=== PATIENT | female | born 1995 | race Caucasian/White ===

== ENCOUNTER 2018-07-29 08:23 | Emergency (ER) | payer OTHER, SELFPAY ==
--- NOTE | 2018-07-29 09:39 | EDPHYS ---
Physician Documentation [facility] Name: Denia Aviles Age: 22 yrs Sex: Female : 1995 Arrival Date: 07/29/2018 Time: 08:25 Bed 13 Private MD: None, None ED Physician Morgan Christensen HPI: 07/29 09:41 This 22 yrs old Female presents to ER via Ambulatory with complaints of Knee snw Pain, Hip Pain. 09:41 The patient or guardian reports pain. sustained from unknown reason, The patient's snw discomfort radiates to the left knee. The complaints affect the left hip and left iliac crest and left gluteus celeste. Onset: The symptoms/episode began/occurred suddenly. Associated signs and symptoms: Loss of consciousness: the patient experienced no loss of consciousness. Severity of symptoms: At their worst the symptoms were moderate. It is unknown whether or not the patient has had similar symptoms in the past. no trauma, no fever, no abdominal pain. 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 - Social history:: Smoking status: Patient uses tobacco products, smokes one-half pack cigarettes per day. - Ebola Screening: : Patient denies exposure to infectious person Patient denies travel to an Ebola-affected area in the 21 days before illness onset. ROS: 09:39 Constitutional: Negative for fever, chills, and weight loss, Eyes: Negative for injury, snw pain, redness, and discharge, ENT: Negative for injury, pain, and discharge, Neck: Negative for injury, pain, and swelling, Cardiovascular: Negative for chest pain, palpitations, and edema, Respiratory: Negative for shortness of breath, cough, wheezing, and pleuritic chest pain, Abdomen/GI: Negative for abdominal pain, nausea, vomiting, diarrhea, and constipation, Back: Negative for injury and pain, : Negative for injury, bleeding, discharge, and swelling, Skin: Negative for injury, rash, and discoloration, Neuro: Negative for headache, weakness, numbness, tingling, and seizure. 09:39 MS/extremity: Positive for pain, of the left iliac crest and left hip. Exam: 09:39 Constitutional: This is a well developed, well nourished patient who is awake, alert, snw and in no acute distress. Head/Face: Normocephalic, atraumatic. Eyes: Pupils equal round and reactive to light, extra-ocular motions intact. Lids and lashes normal. Conjunctiva and sclera are non-icteric and not injected. Cornea within normal limits. Periorbital areas with no swelling, redness, or edema. ENT: Nares patent. No nasal discharge, no septal abnormalities noted. Tympanic membranes are normal and external auditory canals are clear. Oropharynx with no redness, swelling, or masses, exudates, or evidence of obstruction, uvula midline. Mucous membranes moist. Neck: Trachea midline, no thyromegaly or masses palpated, and no cervical lymphadenopathy. Supple, full range of motion without nuchal rigidity, or vertebral point tenderness. No Meningismus. Chest/axilla: Normal chest wall appearance and motion. Nontender with no deformity. No lesions are appreciated. Cardiovascular: Regular rate and rhythm with a normal S1 and S2. No gallops, murmurs, or rubs. Normal PMI, no JVD. No pulse deficits. Respiratory: Lungs have equal breath sounds bilaterally, clear to auscultation and percussion. No rales, rhonchi or wheezes noted. No increased work of breathing, no retractions or nasal flaring. Abdomen/GI: Soft, non-tender, with normal bowel sounds. No distension or tympany. No guarding or rebound. No evidence of tenderness throughout. Skin: Warm, dry with normal turgor. Normal color with no rashes, no lesions, and no evidence of cellulitis. MS/ Extremity: Pulses equal, no cyanosis. Neurovascular intact. Full, normal range of motion. Neuro: Awake and alert, GCS 15, oriented to person, place, time, and situation. Cranial nerves II-XII grossly intact. Motor strength 5/5 in all extremities. Sensory grossly intact. Cerebellar exam normal. Normal gait. Psych: Awake, alert, with orientation to person, place and time. Behavior, mood, and affect are within normal limits. 09:39 Back: pain, that is moderate, ROM is painful, normal spinal alignment noted, CVA tenderness, is absent, muscle spasm, is not present. Vital Signs: 08:42 BP 134 / 78; Pulse 67; Resp 15; Temp 97.0(TE); Pulse Ox 99% on R/A; Weight 68.04 kg; ss Height 5 ft. 4 in. (162.56 cm); Pain 6/10; 09:50 BP 128 / 76; Pulse 71; Resp 16; Pulse Ox 99% on R/A; Pain 5/10; em 08:42 Body Mass Index 25.75 (68.04 kg, 162.56 cm) ss MDM: 08:47 Patient medically screened. snw 09:41 Data reviewed: vital signs, nurses notes. Data interpreted: Pulse oximetry: on room air snw is 99 %. Interpretation: normal. Counseling: I had a detailed discussion with the patient and/or guardian regarding: the historical points, exam findings, and any diagnostic results supporting the discharge/admit diagnosis, lab results, the need for outpatient follow up, to return to the emergency department if symptoms worsen or persist or if there are any questions or concerns that arise at home. 07/29 09:08 Order name: Urine Microscopic Only; Complete Time: 09:50 snw 07/29 09:23 Order name: Urine Dipstick--Ancillary (enter results) 07/29 09:23 Order name: Urine --Ancillary (enter results) 07/29 09:47 Order name: Urine Culture [facility] 07/29 09:08 Order name: Urine Test (obtain specimen); Complete Time: 09:20 snw 07/29 09:08 Order name: Urine Dipstick-Ancillary (obtain specimen); Complete Time: 09:20 snw Administered Medications: 09:50 Drug: Flexeril 10 mg Route: PO; em 10:05 Follow up: Response: No adverse reaction em 09:51 Drug: TORadol 60 mg Route: IM; Site: right deltoid; em 10:05 Follow up: Response: No adverse reaction em Disposition: 13:40 Co-signature as Attending Physician, Morgan Christensen MD. rn Disposition: 07/29/18 09:38 Discharged to Home. Impression: Sciatica, left side. - Condition is Stable. - Discharge Instructions: Sciatica, Back Exercises, [id number], Radicular Pain. - Prescriptions for Diclofenac Sodium 75 mg Oral Tablet Sustained Release - take 1 tablet by ORAL route 2 times per day; 30 tablet. orphenadrine citrate 100 mg Oral Tablet Sustained Release - take 1 tablet by ORAL route 2 times per day As needed; 20 tablet. - Work release form, Medication Reconciliation Form, Thank You Letter, Antibiotic Education, Prescription Opioid Use form. - Follow up: Private Physician; When: 2 - 3 days; Reason: Recheck today's complaints, Continuance of care, Re-evaluation by your physician. Follow up: Emergency Department; When: As needed; Reason: Worsening of condition. Signatures: Dispatcher [employer] EDMS Wendy Whelan, WATCH PARTS GRINDER-C WATCH PARTS GRINDER-Csnw Nikolay Fisher, DIRECTOR WORKFORCE MANAGEMENT DIRECTOR WORKFORCE MANAGEMENT em Morgan Christensen MD MD rn Smirch, Shelby, RN RN ss Corrections: (The following items were deleted from the chart) 10:05 09:38 07/29/2018 09:38 Discharged to Home. Impression: Sciatica, left side. Condition em is Stable. Forms are Medication Reconciliation Form, Thank You Letter, Antibiotic Education, Prescription Opioid Use. Follow up: Private Physician; When: 2 - 3 days; Reason: Recheck today's complaints, Continuance of care, Re-evaluation by your physician. Follow up: Emergency Department; When: As needed; Reason: Worsening of condition. snw
--- NOTE | 2018-07-29 09:39 | ER ---
Nurse's Notes [facility] Name: Denia Aviles Age: 22 yrs Sex: Female : 1995 Arrival Date: 07/29/2018 Time: 08:25 Bed 13 Private MD: None, None Diagnosis: Sciatica, left side Presentation: 07/29 08:41 Presenting complaint: Patient states: L hip pain x 5 days that now radiates to L knee. ss Worse when sitting down. Transition of care: patient was not received from another setting of care. Onset of symptoms was July 24, 2018. Risk Assessment: Do you want to hurt yourself or someone else? Patient reports no desire to harm self or others. Initial Sepsis Screen: Does the patient meet any 2 criteria? No. Patient's initial sepsis screen is negative. Does the patient have a suspected source of infection? No. Patient's initial sepsis screen is negative. Care prior to arrival: None. 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 - Social history:: Smoking status: Patient uses tobacco products, smokes one-half pack cigarettes per day. - Ebola Screening: : Patient denies exposure to infectious person Patient denies travel to an Ebola-affected area in the 21 days before illness onset. Screenin:52 Abuse screen: Denies threats or abuse. Denies injuries from another. Nutritional ss screening: No deficits noted. Tuberculosis screening: Never had TB. Fall Risk None identified. Assessment: 08:52 General: Appears in no apparent distress. comfortable, Behavior is calm, cooperative, ss Denies fever, feeling ill, fatigue, chills. Pain: Complains of pain in L hip Pain currently is 6 out of 10 on a pain scale. Quality of pain is described as aching, tender, Pain began 5 days ago, no known injury Is continuous, Aggravated by sitting, increased activity. Neuro: Level of Consciousness is awake, alert, obeys commands, Oriented to person, place, time, situation, Speech is normal. Cardiovascular: Capillary refill < 3 seconds is brisk in bilateral fingers Patient's skin is warm and dry. Respiratory: Airway is patent Respiratory effort is even, unlabored, Respiratory pattern is regular, symmetrical. GI: No signs and/or symptoms were reported involving the gastrointestinal system. EENT: Nares are clear Oral mucosa is moist. Throat is clear. Derm: Skin is pink, warm \T\ dry. normal. Musculoskeletal: Circulation, motion, and sensation intact. Range of motion: intact in all extremities, Swelling absent. 09:50 Reassessment: Patient appears in no apparent distress at this time. Patient and/or em family updated on plan of care and expected duration. Pain level reassessed. Patient is alert, oriented x 3, equal unlabored respirations, skin warm/dry/pink. Vital Signs: 08:42 BP 134 / 78; Pulse 67; Resp 15; Temp 97.0(TE); Pulse Ox 99% on R/A; Weight 68.04 kg; ss Height 5 ft. 4 in. (162.56 cm); Pain 6/10; 09:50 BP 128 / 76; Pulse 71; Resp 16; Pulse Ox 99% on R/A; Pain 5/10; em 08:42 Body Mass Index 25.75 (68.04 kg, 162.56 cm) ED Course: 08:25 Patient arrived in ED. mr 08:26 None, None is Private Physician. mr 08:28 Wendy Whelan [facility]-C [facility]. snw 08:28 Morgan Christensen MD is Attending Physician. snw 08:42 Triage completed. ss 08:42 Arm band placed on right wrist. ss 08:52 Teena Sullivan, ISMAEL is Primary Nurse. ss 08:52 Patient has correct armband on for positive identification. Bed in low position. Call ss light in reach. 08:52 No provider procedures requiring assistance completed. ss 09:19 Urine collected: clean catch specimen, clear. dh3 10:04 Patient did not have IV access during this emergency room visit. em Administered Medications: 09:50 Drug: Flexeril 10 mg Route: PO; em 10:05 Follow up: Response: No adverse reaction em 09:51 Drug: TORadol 60 mg Route: IM; Site: right deltoid; em 10:05 Follow up: Response: No adverse reaction em Outcome: 09:38 Discharge ordered by MD. will 10:04 Discharged to home ambulatory, with family. em 10:04 Condition: good 10:04 Discharge instructions given to patient, family, Instructed on discharge instructions, follow up and referral plans. no drinking with medication, no driving heavy equipment, medication usage, Demonstrated understanding of instructions, follow-up care, medications, Prescriptions given X 2. 10:05 Patient left the ED. em Signatures: Wendy Whelan, JUNIOR AUTOMATION ENGINEER-C JUNIOR AUTOMATION ENGINEER-Sharriw Nubia Chamorro, Nikolay, BEADER TENDER BEADER TENDER em Teena Sullivan, ISMAEL RN Ashley Solano [facility]
[2018-07-29 09:45] LABS: Urine Bacteria 20-50 /HPF (<20); Urine Culture Reflex Order REFLEXED; Urine RBC <5 /HPF (NONE SEEN)
[2018-07-29] MEDS ORDERED: KETOROLAC 30 MG/ML INJ ONE (09:50)
[2018-07-29] MEDS ORDERED: CYCLOBENZAPRINE 10 MG TAB ONE (09:50)
[2018-07-29 10:09] VITALS: TEMP 97; O2SAT 99
[2018-07-29 10:11] VITALS: BP 128/76
[2018-07-29 21:25] LABS: Urine Blood NEGATIVE (NEG); Urine Glucose NEGATIVE (NEG); Urine Protein NEGATIVE (NEG); Urine Specific Gravity 1.025 (1.005-1.030); Urine pH 5.5 (5.0-7.0)
== END 2018-07-29 10:05 | disposition home or self-care (01) ==
LOC: ER 08:23
DX: M54.32 Sciatica, left side (principal); F17.210 Nicotine dependence, cigarettes, uncomplicated
CPT/HCPCS: 81003; 81015; 81025; 87086; 87088; 96372; 99283

== ENCOUNTER 2018-09-10 23:23 | Emergency (ER) | payer SELFPAY ==
--- NOTE | 2018-09-10 23:50 | EDPHYS ---
Physician Documentation [facility] Name: Denia Aviles Age: 23 yrs Sex: Female : 1995 Arrival Date: 09/10/2018 Time: 23:24 Bed 24 Private MD: ED Physician Justice Husain HPI: 09/10 23:47 This 23 yrs old Female presents to ER via Ambulatory with complaints of Back nh Pain. 23:47 The patient presents with pain that is chronic, with no known mechanism of injury. The nh symptoms are located in the low back. Onset: The symptoms/episode began/occurred 3 day(s) ago. The pain does not radiate. Associated signs and symptoms: Pertinent negatives: abdominal pain, chest pain, constipation, dysuria, fever, headache, hematuria, incontinence, nausea, numbness, tingling, urinary retention, vomiting, weakness. Modifying factors: The patient symptoms are alleviated by nothing, the patient symptoms are aggravated by any movement. Severity of symptoms: At their worst the symptoms were moderate, just prior to arrival, in the emergency department the symptoms are unchanged. The patient has experienced similar episodes in the past, chronically. The patient has been recently seen at the [facility] Emergency Department, last month, for similar complaints. 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 - Social history:: Smoking status: Patient uses tobacco products, smokes one pack cigarettes per day. - Ebola Screening: : No symptoms or risks identified at this time. ROS: 23:47 Constitutional: Negative for fever, chills, and weight loss, Eyes: Negative for injury, nh pain, redness, and discharge, ENT: Negative for injury, pain, and discharge, Neck: Negative for injury, pain, and swelling, Cardiovascular: Negative for chest pain, palpitations, and edema, Respiratory: Negative for shortness of breath, cough, wheezing, and pleuritic chest pain, Abdomen/GI: Negative for abdominal pain, nausea, vomiting, diarrhea, and constipation, : Negative for injury, bleeding, discharge, and swelling, MS/Extremity: Negative for injury and deformity, Skin: Negative for injury, rash, and discoloration, Neuro: Negative for headache, weakness, numbness, tingling, and seizure, Psych: Negative for depression, anxiety, suicide ideation, homicidal ideation, and hallucinations, Allergy/Immunology: Negative for hives, rash, and allergies, Endocrine: Negative for neck swelling, polydipsia, polyuria, polyphagia, and marked weight changes, Hematologic/Lymphatic: Negative for swollen nodes, abnormal bleeding, and unusual bruising. 23:47 Back: Positive for pain with movement, Negative for injury or acute deformity, decreased range of motion, radiated pain, acute changes. Exam: 23:47 Constitutional: This is a well developed, well nourished patient who is awake, alert, nh and in no acute distress. Head/Face: Normocephalic, atraumatic. Eyes: Pupils equal round and reactive to light, extra-ocular motions intact. Lids and lashes normal. Conjunctiva and sclera are non-icteric and not injected. Cornea within normal limits. Periorbital areas with no swelling, redness, or edema. ENT: Nares patent. No nasal discharge, no septal abnormalities noted. Tympanic membranes are normal and external auditory canals are clear. Oropharynx with no redness, swelling, or masses, exudates, or evidence of obstruction, uvula midline. Mucous membranes moist. Neck: Trachea midline, no thyromegaly or masses palpated, and no cervical lymphadenopathy. Supple, full range of motion without nuchal rigidity, or vertebral point tenderness. No Meningismus. Chest/axilla: Normal chest wall appearance and motion. Nontender with no deformity. No lesions are appreciated. Cardiovascular: Regular rate and rhythm with a normal S1 and S2. No gallops, murmurs, or rubs. Normal PMI, no JVD. No pulse deficits. Respiratory: Lungs have equal breath sounds bilaterally, clear to auscultation and percussion. No rales, rhonchi or wheezes noted. No increased work of breathing, no retractions or nasal flaring. Abdomen/GI: Soft, non-tender, with normal bowel sounds. No distension or tympany. No guarding or rebound. No evidence of tenderness throughout. Back: No spinal tenderness. No costovertebral tenderness. Full range of motion. Skin: Warm, dry with normal turgor. Normal color with no rashes, no lesions, and no evidence of cellulitis. MS/ Extremity: Pulses equal, no cyanosis. Neurovascular intact. Full, normal range of motion. Neuro: Awake and alert, GCS 15, oriented to person, place, time, and situation. Cranial nerves II-XII grossly intact. Motor strength 5/5 in all extremities. Sensory grossly intact. Cerebellar exam normal. Normal gait. Psych: Awake, alert, with orientation to person, place and time. Behavior, mood, and affect are within normal limits. Vital Signs: 23:33 BP 130 / 79; Pulse 70; Resp 16; Temp 97.8; Pulse Ox 100% on R/A; Weight 72.57 kg; aa1 Height 5 ft. 4 in. (162.56 cm); Pain 6/10; 23:54 BP 125 / 75; Pulse 72; Resp 18; Pulse Ox 100% on R/A; tl2 23:33 Body Mass Index 27.46 (72.57 kg, 162.56 cm) aa1 MDM: 23:27 Patient medically screened. nh 23:47 Data reviewed: vital signs, nurses notes, I have discussed the patient's nm presentation/case with the attending Emergency Department Physician; and as a result, I will discharge patient. Counseling: I had a detailed discussion with the patient and/or guardian regarding: the historical points, exam findings, and any diagnostic results supporting the discharge/admit diagnosis, the need for outpatient follow up, to return to the emergency department if symptoms worsen or persist or if there are any questions or concerns that arise at home. Administered Medications: No medications were administered Disposition: 09/10/18 23:49 Discharged to Home. Impression: Low back pain. - Condition is Stable. - Discharge Instructions: Back Pain, Adult. - Prescriptions for Medrol (Yoni) 4 mg Oral Tablets, Dose Pack - take 1 tablet by ORAL route as directed - follow package instructions; 1 packet. Cyclobenzaprine 5 mg Oral Tablet - take 1 tablet by ORAL route 3 times per day As needed; 15 tablet. - Medication Reconciliation Form, Thank You Letter, Antibiotic Education, Prescription Opioid Use, Work release form form. - Follow up: Private Physician; When: 2 - 3 days; Reason: Recheck today's complaints. - Problem is new. - Symptoms are unchanged. Addendum: 09/14/2018 21:49 Co-signature as Attending Physician, Justice Husain MD Available for consultation at p s1 all times. . Signatures: Mariaa Dobbs, RN RN aa1 Merissa Grant, NUB CARD TENDER NUB CARD TENDER nh Elizabeth Dyer RN RN tl2 Justice Husain MD MD ps1 Corrections: (The following items were deleted from the chart) 09/10 23:55 23:49 09/10/2018 23:49 Discharged to Home. Impression: Low back pain. Condition is tl2 Stable. Forms are Medication Reconciliation Form, Thank You Letter, Antibiotic Education, Prescription Opioid Use. Follow up: Private Physician; When: 2 - 3 days; Reason: Recheck today's complaints. Problem is new. Symptoms are unchanged. nh
--- NOTE | 2018-09-10 23:50 | ER ---
Nurse's Notes [facility] Name: Denia Aviles Age: 23 yrs Sex: Female : 1995 Arrival Date: 09/10/2018 Time: 23:24 Bed 24 Private MD: Diagnosis: Low back pain Presentation: 09/10 23:31 Presenting complaint: Patient states: back pain that runs up spine since this am. aa1 Denies injury. Gait steady. Transition of care: patient was not received from another setting of care. Onset of symptoms was September 10, 2018. Risk Assessment: Do you want to hurt yourself or someone else? Patient reports no desire to harm self or others. Initial Sepsis Screen: Does the patient meet any 2 criteria? No. Patient's initial sepsis screen is negative. Does the patient have a suspected source of infection? No. Patient's initial sepsis screen is negative. Care prior to arrival: None. 23:31 Method Of Arrival: Ambulatory aa1 23:31 Acuity: FRED 5 aa1 Triage Assessment: 23:33 General: Appears in no apparent distress. comfortable, Behavior is calm, cooperative, aa1 appropriate for age. 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 - Social history:: Smoking status: Patient uses tobacco products, smokes one pack cigarettes per day. - Ebola Screening: : No symptoms or risks identified at this time. Screenin:37 Abuse screen: Denies threats or abuse. Nutritional screening: No deficits noted. tl2 Tuberculosis screening: No symptoms or risk factors identified. Fall Risk None identified. Assessment: 23:36 General: Appears in no apparent distress. uncomfortable, Behavior is calm, cooperative, tl2 appropriate for age. Pain: Complains of pain in thoracic area and lumbar area Pain does not radiate. Neuro: Level of Consciousness is awake, alert, obeys commands, Oriented to person, place, time, situation, Denies dizziness, numbness. Cardiovascular: Denies chest pain. Respiratory: Airway is patent Respiratory effort is even, unlabored, Respiratory pattern is regular, symmetrical. GI: No signs and/or symptoms were reported involving the gastrointestinal system. : No signs and/or symptoms were reported regarding the genitourinary system. Derm: Skin is pink, warm \T\ dry. Musculoskeletal: Circulation, motion, and sensation intact. Range of motion: intact in all extremities. 23:54 Reassessment: Patient appears in no apparent distress at this time. Patient and/or tl2 family updated on plan of care and expected duration. Pain level reassessed. Patient is alert, oriented x 3, equal unlabored respirations, skin warm/dry/pink. Pt verbalized understanding of discharge instructions, need for follow up and prescription usage. Vital Signs: 23:33 BP 130 / 79; Pulse 70; Resp 16; Temp 97.8; Pulse Ox 100% on R/A; Weight 72.57 kg; aa1 Height 5 ft. 4 in. (162.56 cm); Pain 6/10; 23:54 BP 125 / 75; Pulse 72; Resp 18; Pulse Ox 100% on R/A; tl2 23:33 Body Mass Index 27.46 (72.57 kg, 162.56 cm) aa1 ED Course: 23:24 Patient arrived in ED. ds1 23:27 Merissa Grant [facility]NP [facility]. nh 23:27 Justice Husain MD is Attending Physician. nh 23:32 Triage completed. aa1 23:33 Arm band placed on right wrist. aa1 23:34 Elizabeth Dyer RN is Primary Nurse. tl2 23:37 Patient has correct armband on for positive identification. Bed in low position. Call tl2 light in reach. Side rails up X 1. Adult w/ patient. 23:54 No provider procedures requiring assistance completed. Patient did not have IV access tl2 during this emergency room visit. Administered Medications: No medications were administered Outcome: 23:49 Discharge ordered by . nh 23:54 Discharged to home ambulatory, with family. tl2 23:54 Condition: stable 23:54 Discharge instructions given to patient, family, Instructed on discharge instructions, follow up and referral plans. medication usage, Demonstrated understanding of instructions, follow-up care, medications, Prescriptions given X 2. 23:55 Patient left the ED. tl2 Signatures: Mariaa Dobbs RN RN aa1 Merissa Grant FNP SAFETY SECURITY OFFICER [facility], Jania ds1 Dyer, Elizabeth, RN RN tl2
[2018-09-11 00:36] VITALS: TEMP 97.8; O2SAT 100
[2018-09-11 00:37] VITALS: BP 125/75
== END 2018-09-10 23:55 | disposition home or self-care (01) ==
LOC: ER 23:23
DX: M54.5 Low back pain (principal); F17.210 Nicotine dependence, cigarettes, uncomplicated
CPT/HCPCS: 99282

== ENCOUNTER 2018-09-21 12:17 | Emergency (ER) | payer SELFPAY ==
--- NOTE | 2018-09-21 13:28 | RAD REPORT ---
EXAM DESCRIPTION: RAD - Foot Right 3 View - 09/21/2018 1:18 pm CLINICAL HISTORY: PAIN COMPARISON: No comparisons FINDINGS: No bone or joint abnormality of the right foot is identified.
--- NOTE | 2018-09-21 14:19 | ER ---
Nurse's Notes [facility] Name: Denia Aviles Age: 23 yrs Sex: Female : 1995 Arrival Date: 09/21/2018 Time: 12:21 Bed 30 Private MD: None, None Diagnosis: Other sprain of right foot Presentation: 09/21 12:36 Presenting complaint: Patient states: R lateral foot pain that began after rolling foot ss while dancing yesterday. Transition of care: patient was not received from another setting of care. Onset of symptoms was September 20, 2018. Risk Assessment: Do you want to hurt yourself or someone else? Patient reports no desire to harm self or others. Initial Sepsis Screen: Does the patient meet any 2 criteria? No. Patient's initial sepsis screen is negative. Does the patient have a suspected source of infection? No. Patient's initial sepsis screen is negative. Care prior to arrival: None. 12:36 Method Of Arrival: Wheelchair ss 12:36 Acuity: FRED 4 ss Historical: - Allergies: 12:37 No Known Allergies; ss - PMHx: 12:37 None; ss - PSHx: 12:37 Cholecystectomy; ss - Immunization history:: Adult Immunizations up to date. - Social history:: Smoking status: Patient uses tobacco products, smokes one-half pack cigarettes per day. - Ebola Screening: : Patient denies exposure to infectious person Patient denies travel to an Ebola-affected area in the 21 days before illness onset. Screenin:17 Abuse screen: Denies threats or abuse. Denies injuries from another. Nutritional aj1 screening: No deficits noted. Tuberculosis screening: No symptoms or risk factors identified. 14:44 Fall Risk None identified. aj1 Assessment: 13:17 General: Appears in no apparent distress. uncomfortable, Behavior is calm, cooperative, aj1 appropriate for age. Pain: Complains of pain in dorsum of right foot Pain currently is 7 out of 10 on a pain scale. Aggravated by repositioning, weight bearing. Neuro: Level of Consciousness is awake, alert, obeys commands. Cardiovascular: Patient's skin is warm and dry. Respiratory: Airway is patent Respiratory effort is even, unlabored, Respiratory pattern is regular, symmetrical. GI: No signs and/or symptoms were reported involving the gastrointestinal system. : No signs and/or symptoms were reported regarding the genitourinary system. EENT: No signs and/or symptoms were reported regarding the EENT system. Derm: No signs and/or symptoms reported regarding the dermatologic system. Skin is pink, warm \T\ dry. normal. Musculoskeletal: Range of motion: intact in all extremities. 14:43 Reassessment: Patient appears in no apparent distress at this time. No changes from aj1 previously documented assessment. Patient and/or family updated on plan of care and expected duration. Pain level reassessed. Patient is alert, oriented x 3, equal unlabored respirations, skin warm/dry/pink. Vital Signs: 12:35 BP 124 / 82; Pulse 62; Resp 16; Temp 97.8(TE); Pulse Ox 99% on R/A; Weight 68.04 kg; ss Height 5 ft. 4 in. (162.56 cm); Pain 7/10; 12:35 Body Mass Index 25.75 (68.04 kg, 162.56 cm) ED Course: 12:21 Patient arrived in ED. sb2 12:21 None, None is Private Physician. sb2 12:35 Arm band placed on right wrist. ss 12:36 Triage completed. ss 12:38 [facility]C [facility]. kb 12:38 Sanjay Lake MD is Attending Physician. kb 13:16 X-ray completed. Portable x-ray completed in exam room. Patient tolerated procedure mh1 well. 13:17 Cha Fowler, RN is Primary Nurse. aj1 13:17 Patient has correct armband on for positive identification. Bed in low position. Call aj1 light in reach. Side rails up X 1. 13:17 No provider procedures requiring assistance completed. aj1 13:21 Foot Right 3 View XRAY In Process Unspecified. EDMS 14:44 Patient did not have IV access during this emergency room visit. Anthony wrap to right foot.aj1 Administered Medications: No medications were administered Outcome: 14:18 Discharge ordered by . kb 14:44 Discharged to home with crutches. aj1 14:44 Condition: good 14:44 Discharge instructions given to patient, Instructed on discharge instructions, follow up and referral plans. medication usage, urine strainer, Demonstrated understanding of instructions, follow-up care, medications, crutch walking, Prescriptions given X 1. 14:45 Patient left the ED. aj1 Signatures: Dispatcher [employer] EDMS Sadaf Salter, THEATER TECHNICIAN-C THEATER TECHNICIAN-Cha Aldridge RN RN aj1 Delilah Garcia 1 Teena Sullivan RN RN ss Cyn Olmedo sb2
--- NOTE | 2018-09-21 14:20 | EDPHYS ---
Physician Documentation [facility] Name: Denia Aviles Age: 23 yrs Sex: Female : 1995 Arrival Date: 09/21/2018 Time: 12:21 Bed 30 Private MD: None, None ED Physician Sanjay Lake HPI: 09/21 14:09 This 23 yrs old Female presents to ER via Wheelchair with complaints of Foot kb Injury. 14:09 The patient has not experienced similar symptoms in the past. The patient has not kb recently seen a physician. 14:10 The patient presents with pain, that is acute, tenderness. The complaints affect the kb right foot. Context: The problem was sustained at home, resulted from twisted foot, Mechanism of Injury: Inversion the patient can partially bear weight, the patient is able to ambulate, with mild difficulty. Onset: The symptoms/episode began/occurred last night. Modifying factors: The symptoms are alleviated by nothing, the symptoms are aggravated by weight bearing. Associated signs and symptoms: Pertinent positives: swelling, Pertinent negatives: calf tenderness, fever, nausea, numbness, rash, tingling, vomiting, warmth, weakness. Severity of symptoms: At their worst the symptoms were moderate, in the emergency department the symptoms are unchanged. Pt reports she twisted her foot when dancing around last night. . Historical: - Allergies: 12:37 No Known Allergies; ss - PMHx: 12:37 None; ss - PSHx: 12:37 Cholecystectomy; ss - Immunization history:: Adult Immunizations up to date. - Social history:: Smoking status: Patient uses tobacco products, smokes one-half pack cigarettes per day. - Ebola Screening: : Patient denies exposure to infectious person Patient denies travel to an Ebola-affected area in the 21 days before illness onset. ROS: 14:16 Constitutional: Negative for fever, chills, and weight loss, ENT: Negative for injury, kb pain, and discharge, Neck: Negative for injury, pain, and swelling, Cardiovascular: Negative for chest pain, palpitations, and edema, Respiratory: Negative for shortness of breath, cough, wheezing, and pleuritic chest pain, Abdomen/GI: Negative for abdominal pain, nausea, vomiting, diarrhea, and constipation, Back: Negative for injury and pain, Skin: Negative for injury, rash, and discoloration, Neuro: Negative for headache, weakness, numbness, tingling, and seizure. 14:16 MS/extremity: Positive for pain, tenderness, of the lateral side of right foot. Exam: 14:16 Constitutional: This is a well developed, well nourished patient who is awake, alert, kb and in no acute distress. Head/Face: Normocephalic, atraumatic. Chest/axilla: Normal chest wall appearance and motion. Nontender with no deformity. No lesions are appreciated. Cardiovascular: Regular rate and rhythm with a normal S1 and S2. No gallops, murmurs, or rubs. Normal PMI, no JVD. No pulse deficits. Respiratory: Lungs have equal breath sounds bilaterally, clear to auscultation and percussion. No rales, rhonchi or wheezes noted. No increased work of breathing, no retractions or nasal flaring. Abdomen/GI: Soft, non-tender, with normal bowel sounds. No distension or tympany. No guarding or rebound. No evidence of tenderness throughout. Back: No spinal tenderness. No costovertebral tenderness. Full range of motion. Skin: Warm, dry with normal turgor. Normal color with no rashes, no lesions, and no evidence of cellulitis. Neuro: Awake and alert, GCS 15, oriented to person, place, time, and situation. Cranial nerves II-XII grossly intact. Motor strength 5/5 in all extremities. Sensory grossly intact. Cerebellar exam normal. Normal gait. 14:16 Musculoskeletal/extremity: Extremities: grossly normal except: noted in the lateral side of right foot: pain, tenderness, ROM: intact in all extremities, Circulation is intact in all extremities. Sensation intact. Weight bearing: can bear weight with assistance only. Vital Signs: 12:35 BP 124 / 82; Pulse 62; Resp 16; Temp 97.8(TE); Pulse Ox 99% on R/A; Weight 68.04 kg; ss Height 5 ft. 4 in. (162.56 cm); Pain 7/10; 12:35 Body Mass Index 25.75 (68.04 kg, 162.56 cm) ss MDM: 12:59 Patient medically screened. kb 14:14 Data reviewed: vital signs, nurses notes. Data interpreted: Pulse oximetry: on room air kb is 99 %. Interpretation: normal. 14:17 Counseling: I had a detailed discussion with the patient and/or guardian regarding: the kb historical points, exam findings, and any diagnostic results supporting the discharge/admit diagnosis, radiology results, the need for outpatient follow up, a family practitioner, a orthopedic surgeon, to return to the emergency department if symptoms worsen or persist or if there are any questions or concerns that arise at home. 09/21 12:38 Order name: Foot Right 3 View XRAY; Complete Time: 13:31 kb 09/21 14:08 Order name: Anthony Wrap; Complete Time: 14:43 kb 09/21 14:08 Order name: Crutches; Complete Time: 14:43 kb Administered Medications: No medications were administered Disposition: 09/22 07:35 Co-signature as Attending Physician, Sanjay Lake MD I agree with the assessment and kdr plan of care. Disposition: 09/21/18 14:18 Discharged to Home. Impression: Other sprain of right foot. - Condition is Stable. - Discharge Instructions: Foot Sprain. - Prescriptions for Diclofenac Sodium 75 mg Oral Tablet, Delayed Release (E.C.) - take 1 tablet by ORAL route 2 times per day As needed; 30 tablet. - Medication Reconciliation Form, Thank You Letter, Antibiotic Education, Prescription Opioid Use, Work release form form. - Follow up: Emergency Department; When: As needed; Reason: Worsening of condition. Follow up: Private Physician; When: 2 - 3 days; Reason: Recheck today's complaints, Continuance of care, Re-evaluation by your physician. Signatures: Dispatcher [employer] [facility] Sadaf Salter, CARTON STENCILER-C CARTON STENCILER-Cha Aldridge RN RN aj1 Sanjay Lake MD MD [facility] Teena Sullivan RN RN ss Corrections: (The following items were deleted from the chart) 09/21 14:45 14:18 09/21/2018 14:18 Discharged to Home. Impression: Other sprain of right foot. aj1 Condition is Stable. Forms are Medication Reconciliation Form, Thank You Letter, Antibiotic Education, Prescription Opioid Use. Follow up: Emergency Department; When: As needed; Reason: Worsening of condition. Follow up: Private Physician; When: 2 - 3 days; Reason: Recheck today's complaints, Continuance of care, Re-evaluation by your physician. kb
[2018-09-21 14:50] VITALS: BP 124/82; TEMP 97.8; O2SAT 99
== END 2018-09-21 14:45 | disposition home or self-care (01) ==
LOC: ER 12:17
DX: S93.691A Other sprain of right foot, initial encounter (principal); Y93.41 Activity, dancing; Y92.009 Unspecified place in unspecified non-institutional (private) residence as the place of occurrence of the external cause; F17.210 Nicotine dependence, cigarettes, uncomplicated
CPT/HCPCS: 99283

== ENCOUNTER 2018-12-06 14:35 | Emergency (ER) | payer SELFPAY ==
--- NOTE | 2018-12-06 17:32 | RAD REPORT ---
EXAM DESCRIPTION: RADSacrum And Coccyx12/06/2018 5:14 pm CLINICAL HISTORY: Back pain status post fall FINDINGS: No fracture is seen
--- NOTE | 2018-12-06 17:32 | RAD REPORT ---
EXAM DESCRIPTION: RAD - Lumbar Spine 3 Views - 12/06/2018 5:14 pm CLINICAL HISTORY: Back pain FINDINGS: Minimal posterior subluxation of L5 on S1. No fracture or dislocation is seen. Remainder of the exam is unremarkable
--- NOTE | 2018-12-06 17:40 | ER ---
Nurse's Notes [facility] Name: Denia Aviles Age: 23 yrs Sex: Female : 1995 Arrival Date: 12/06/2018 Time: 14:36 Bed 10 Private MD: None, None Diagnosis: Fall (on) (from) other stairs and steps;Low back pain-from fall Presentation: 12/06 15:06 Presenting complaint: Patient states: pain to tailbone/lower back since tripping and ch falling two days ago. fell over my kid. Transition of care: patient was not received from another setting of care. Onset of symptoms was December 04, 2018. Risk Assessment: Do you want to hurt yourself or someone else? Patient reports no desire to harm self or others. Initial Sepsis Screen: Does the patient meet any 2 criteria? No. Patient's initial sepsis screen is negative. Does the patient have a suspected source of infection? No. Patient's initial sepsis screen is negative. Care prior to arrival: Medication(s) given: Motrin, Tylenol. 15:06 Method Of Arrival: Ambulatory 15:06 Acuity: FRED 3 ch Triage Assessment: 15:07 General: Appears in no apparent distress. comfortable, Behavior is calm, cooperative, ch appropriate for age. Pain: Complains of pain in low back area. 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 - Social history:: Smoking status: Patient uses tobacco products, Patient/guardian denies using alcohol, street drugs. - Ebola Screening: : Patient negative for fever greater than or equal to 101.5 degrees Fahrenheit, and additional compatible Ebola Virus Disease symptoms Patient denies exposure to infectious person Patient denies travel to an Ebola-affected area in the 21 days before illness onset No symptoms or risks identified at this time. Screenin:14 Abuse screen: Denies threats or abuse. Denies injuries from another. Nutritional ls4 screening: No deficits noted. Tuberculosis screening: No symptoms or risk factors identified. Fall Risk None identified. Assessment: 15:24 General: Appears in no apparent distress. Neuro: Level of Consciousness is awake, ls4 alert, obeys commands, Oriented to person, place, time, situation, Electromechanical Inspector are equal bilaterally Moves all extremities. Gait is steady. Cardiovascular: No deficits noted. Respiratory: Airway is patent Respiratory effort is even, unlabored, Respiratory pattern is regular. Musculoskeletal: Circulation, motion, and sensation intact. Capillary refill < 3 seconds, Range of motion: intact in all extremities. Vital Signs: 15:07 BP 130 / 73; Pulse 64; Resp 18; Temp 98.3; Pulse Ox 99% on R/A; Weight 72.57 kg; Height ch 5 ft. 4 in. (162.56 cm); Pain 6/10; 15:07 Body Mass Index 27.46 (72.57 kg, 162.56 cm) ED Course: 14:36 Patient arrived in ED. ag5 14:36 None, None is Private Physician. ag5 15:06 Triage completed. 15:07 Arm band placed on left wrist. Patient placed in waiting room. 15:13 Dena Cobos, RN is Primary Nurse. ls4 15:14 Zenon Blake PA is PHCP. cp 15:14 Morgan Christensen MD is Attending Physician. cp 15:14 Patient has correct armband on for positive identification. ls4 15:14 No provider procedures requiring assistance completed. Patient did not have IV access ls4 during this emergency room visit. 17:14 XRAY Lumbar Spine (3 Views) In Process Unspecified. EDMS 17:14 XRAY Sacrum And Coccyx In Process Unspecified. EDMS Administered Medications: No medications were administered Outcome: 17:39 Discharge ordered by . cp 17:58 Patient left the ED. ls4 Signatures: Dispatcher [employer] EDMS Giselle Hancock RN RN eZnon Blake PA PA cp Stewart, Lisa, RN RN ls4 Adan Brady ag5
--- NOTE | 2018-12-06 17:40 | EDPHYS ---
Physician Documentation [facility] Name: Denia Self Age: 23 yrs Sex: Female : 1995 Arrival Date: 12/06/2018 Time: 14:36 Bed 10 Private MD: None, None ED Physician Morgan Christensen HPI: 12/06 15:45 This 23 yrs old Female presents to ER via Ambulatory with complaints of Fall cp Injury, Back Pain. 15:45 Details of fall: The patient fell from a height, step stool, and struck a tile surface. cp Onset: The symptoms/episode began/occurred 2 day(s) ago. Associated injuries: The patient sustained injury to the low back, pain, tenderness, sacrum and coccyx area. 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 - Social history:: Smoking status: Patient uses tobacco products, Patient/guardian denies using alcohol, street drugs. - Ebola Screening: : Patient negative for fever greater than or equal to 101.5 degrees Fahrenheit, and additional compatible Ebola Virus Disease symptoms Patient denies exposure to infectious person Patient denies travel to an Ebola-affected area in the 21 days before illness onset No symptoms or risks identified at this time. ROS: 15:50 Constitutional: Negative for body aches, chills, fever, poor PO intake. cp 15:50 Eyes: Negative for injury, pain, redness, and discharge. cp 15:50 ENT: Negative for drainage from ear(s), ear pain, sore throat, difficulty swallowing, difficulty handling secretions. 15:50 Neck: Negative for pain with movement, pain at rest, stiffness, tenderness, bony tenderness. 15:50 Cardiovascular: Negative for chest pain, palpitations. 15:50 Respiratory: Negative for cough, shortness of breath, wheezing. 15:50 Abdomen/GI: Negative for abdominal pain, nausea, vomiting, and diarrhea, constipation, bowel incontinence. 15:50 Back: Positive for pain at rest, pain with movement, of the lumbar area and sacrum. 15:50 : Negative for urinary symptoms, bladder incontinence. 15:50 Skin: Negative for cellulitis, rash. 15:50 Neuro: Negative for altered mental status, headache, loss of consciousness, numbness, syncope, tingling, weakness. 15:50 All other systems are negative. Exam: 16:00 Constitutional: The patient appears in no acute distress, alert, awake, non-toxic, well cp developed, well nourished. 16:00 Head/Face: Normocephalic, atraumatic. cp 16:00 Eyes: Periorbital structures: appear normal, Conjunctiva: normal, no exudate, no injection, Sclera: no appreciated abnormality, Lids and lashes: appear normal, bilaterally. 16:00 ENT: External ear(s): are unremarkable, Nose: is normal, Mouth: Lips: moist, Oral mucosa: pink and intact, moist, Posterior pharynx: is normal, airway is patent, no erythema, no exudate. 16:00 Neck: C-spine: vertebral tenderness, is not appreciated, crepitus, is not appreciated, ROM/movement: is normal, is supple, without pain, no range of motions limitations, no nuchal rigidity. 16:00 Chest/axilla: Inspection: normal, Palpation: is normal, no crepitus, no tenderness. 16:00 Cardiovascular: Rate: normal, Rhythm: regular. 16:00 Respiratory: the patient does not display signs of respiratory distress, Respirations: normal, no use of accessory muscles, no retractions, no splinting, no tachypnea, labored breathing, is not present, Breath sounds: are clear throughout, no decreased breath sounds, no stridor, no wheezing. 16:00 Abdomen/GI: Inspection: abdomen appears normal, Bowel sounds: active, all quadrants, Palpation: abdomen is soft and non-tender, in all quadrants, rebound tenderness, is not appreciated, voluntary guarding, is not appreciated, involuntary guarding, is not appreciated. 16:00 Back: pain, that is moderate, of the lumbar area and sacrum, ROM is normal, Straight leg raises: of both lower extremities does not illicit pain. 16:00 Musculoskeletal/extremity: Exam is negative for decreased range of motion, deformity, injury. 16:00 Skin: cellulitis, is not appreciated, no rash present. 16:00 Neuro: Orientation: to person, place \T\ time. Mentation: is normal, Cerebellar function: is grossly normal, Motor: moves all fours, strength is normal, Sensation: is normal, Gait: is steady, at a normal pace, without difficulty, Deep tendon reflexes are 2+ (normal) in the right patellar, right Achilles, left patellar and left Achilles. Vital Signs: 15:07 BP 130 / 73; Pulse 64; Resp 18; Temp 98.3; Pulse Ox 99% on R/A; Weight 72.57 kg; Height ch 5 ft. 4 in. (162.56 cm); Pain 6/10; 15:07 Body Mass Index 27.46 (72.57 kg, 162.56 cm) ch MDM: 15:14 Patient medically screened. cp 16:00 Differential diagnosis: contusion, fracture. cp 17:38 Data reviewed: vital signs, nurses notes, radiologic studies, plain films, I have cp discussed the patient's presentation/case with the attending Emergency Department Physician; and as a result, I will discharge patient. 17:38 Test interpretation: by ED physician or midlevel provider: plain radiologic studies. cp Counseling: I had a detailed discussion with the patient and/or guardian regarding: the historical points, exam findings, and any diagnostic results supporting the discharge/admit diagnosis, radiology results, to return to the emergency department if symptoms worsen or persist or if there are any questions or concerns that arise at home. 12/06 15:59 Order name: Urine Dipstick--Ancillary (enter results) 12/06 15:59 Order name: Urine --Ancillary (enter results) 12/06 15:25 Order name: XRAY Lumbar Spine (3 Views); Complete Time: 17:36 12/06 17:37 Interpretation: Report reviewed. 12/06 15:25 Order name: XRAY Sacrum And Coccyx; Complete Time: 17:36 cp 12/06 17:37 Interpretation: Report reviewed. 12/06 15:25 Order name: Urine Dipstick-Ancillary (obtain specimen); Complete Time: 16:01 cp 12/06 15:25 Order name: Urine Test (obtain specimen); Complete Time: 16:01 cp Administered Medications: No medications were administered Disposition: 12/06/18 17:39 Discharged to Home. Impression: Fall (on) (from) other stairs and steps, Low back pain - from fall. - Condition is Stable. - Discharge Instructions: Back Pain, Adult, Back Exercises, [id number]. - Prescriptions for Ibuprofen 800 mg Oral Tablet - take 1 tablet by ORAL route every 8 hours As needed take with food; 30 tablet. Cyclobenzaprine 10 mg Oral Tablet - take 1 tablet by ORAL route every 8 hours As needed; 20 tablet. Tramadol 50 mg Oral Tablet - take 1 tablet by ORAL route every 8 hours as needed; 15 tablet. - Medication Reconciliation Form, Thank You Letter, Antibiotic Education, Prescription Opioid Use form. - Work release form (12/06/18 19:27). ch - Follow up: Private Physician; When: 2 - 3 days; Reason: Recheck today's complaints. - Problem is new. - Symptoms have improved. Addendum: 12/12/2018 07:16 Co-signature as Attending Physician, Morgan Christensen MD. r n Signatures: Dispatcher [employer] Giselle Rich RN RN Morgan Christensen MD MD rn Page, Corey, PA PA cp Dena Cobos RN RN ls4 Corrections: (The following items were deleted from the chart) 12/06 17:58 17:39 12/06/2018 17:39 Discharged to Home. Impression: Fall (on) (from) other stairs ls4 and steps; Low back pain - from fall. Condition is Stable. Forms are Medication Reconciliation Form, Thank You Letter, Antibiotic Education, Prescription Opioid Use. Follow up: Private Physician; When: 2 - 3 days; Reason: Recheck today's complaints. Problem is new. Symptoms have improved. cp
[2018-12-06 18:15] VITALS: BP 130/73; TEMP 98.3; O2SAT 99
[2018-12-06 19:49] LABS: Urine Blood NEGATIVE (NEG); Urine Glucose NEGATIVE (NEG); Urine Protein NEGATIVE (NEG); Urine pH 8.5 (5.0-7.0)
== END 2018-12-06 17:58 | disposition home or self-care (01) ==
LOC: ER 14:35
DX: M54.5 Low back pain (principal); W11.XXXA Fall on and from ladder, initial encounter; Y93.9 Activity, unspecified; Y92.9 Unspecified place or not applicable; Z72.0 Tobacco use
CPT/HCPCS: 72100; 72220; 81003; 81025; 99282

== ENCOUNTER 2019-02-01 12:11 | Emergency (ER) | payer SELFPAY ==
[2019-02-01 14:10] LABS: Urine Blood NEGATIVE (NEG); Urine Glucose NEGATIVE (NEG); Urine Protein NEGATIVE (NEG); Urine Specific Gravity 1.015 (1.005-1.030); Urine pH 5.5 (5.0-7.0)
[2019-02-01 14:26] LABS: Urine Bacteria NONE SEEN /HPF (<20); Urine Culture Reflex Order NOT NEEDED; Urine RBC NONE SEEN /HPF (NONE SEEN)
--- NOTE | 2019-02-01 14:31 | EDPHYS ---
Physician Documentation [facility] Name: Denia Aviles Age: 23 yrs Sex: Female : 1995 Arrival Date: 02/01/2019 Time: 12:13 Bed 12 Private MD: None, None ED Physician Gely Padron HPI: 02/01 13:33 This 23 yrs old Female presents to ER via Ambulatory with complaints of Back snw Pain. 13:33 The patient presents with pain that is acute. The symptoms are located in the low back, snw coccyx area. Onset: The symptoms/episode began/occurred suddenly, and became persistent. Location: lumbar area. Associated signs and symptoms: The patient has no apparent associated signs or symptoms. The problem was sustained from a direct blow, slid down the stairs and landed on buttock, s/p coccyx fx. Severity of symptoms: At their worst the symptoms were moderate, severe. The patient has experienced a previous episode. The patient has not recently seen a physician. 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 - Social history:: Smoking status: Patient uses tobacco products, smokes one-half pack cigarettes per day. - Ebola Screening: : No symptoms or risks identified at this time. ROS: 13:33 Constitutional: Negative for fever, chills, and weight loss, Eyes: Negative for injury, snw pain, redness, and discharge, ENT: Negative for injury, pain, and discharge, Neck: Negative for injury, pain, and swelling, Cardiovascular: Negative for chest pain, palpitations, and edema, Respiratory: Negative for shortness of breath, cough, wheezing, and pleuritic chest pain, Abdomen/GI: Negative for abdominal pain, nausea, vomiting, diarrhea, and constipation, : Negative for injury, bleeding, discharge, and swelling, MS/Extremity: Negative for injury and deformity, Skin: Negative for injury, rash, and discoloration, Neuro: Negative for headache, weakness, numbness, tingling, and seizure. 13:33 Back: Positive for injury or acute deformity, pain with movement. Exam: 13:32 Constitutional: This is a well developed, well nourished patient who is awake, alert, snw and in no acute distress. Head/Face: Normocephalic, atraumatic. Eyes: Pupils equal round and reactive to light, extra-ocular motions intact. Lids and lashes normal. Conjunctiva and sclera are non-icteric and not injected. Cornea within normal limits. Periorbital areas with no swelling, redness, or edema. ENT: Nares patent. No nasal discharge, no septal abnormalities noted. Tympanic membranes are normal and external auditory canals are clear. Oropharynx with no redness, swelling, or masses, exudates, or evidence of obstruction, uvula midline. Mucous membranes moist. Neck: Trachea midline, no thyromegaly or masses palpated, and no cervical lymphadenopathy. Supple, full range of motion without nuchal rigidity, or vertebral point tenderness. No Meningismus. Chest/axilla: Normal chest wall appearance and motion. Nontender with no deformity. No lesions are appreciated. Cardiovascular: Regular rate and rhythm with a normal S1 and S2. No gallops, murmurs, or rubs. Normal PMI, no JVD. No pulse deficits. Respiratory: Lungs have equal breath sounds bilaterally, clear to auscultation and percussion. No rales, rhonchi or wheezes noted. No increased work of breathing, no retractions or nasal flaring. Abdomen/GI: Soft, non-tender, with normal bowel sounds. No distension or tympany. No guarding or rebound. No evidence of tenderness throughout. Skin: Warm, dry with normal turgor. Normal color with no rashes, no lesions, and no evidence of cellulitis. MS/ Extremity: Pulses equal, no cyanosis. Neurovascular intact. Full, normal range of motion. Neuro: Awake and alert, GCS 15, oriented to person, place, time, and situation. Cranial nerves II-XII grossly intact. Motor strength 5/5 in all extremities. Sensory grossly intact. Cerebellar exam normal. Normal gait. Psych: Awake, alert, with orientation to person, place and time. Behavior, mood, and affect are within normal limits. 13:32 Back: pain, that is moderate, of the lumbar area and sacrum, normal spinal alignment noted, CVA tenderness, is absent. Vital Signs: 12:23 BP 124 / 81; Pulse 102; Resp 16 S; Temp 98.2(TE); Pulse Ox 99% on R/A; Weight 72.57 kg aa5 (R); Height 5 ft. 4 in. (162.56 cm) (R); Pain 7/10; 12:23 Body Mass Index 27.46 (72.57 kg, 162.56 cm) aa5 MDM: 12:48 Patient medically screened. snw 14:32 Data reviewed: vital signs, nurses notes. Data interpreted: Pulse oximetry: on room air snw is 99 %. Interpretation: normal. Counseling: I had a detailed discussion with the patient and/or guardian regarding: the historical points, exam findings, and any diagnostic results supporting the discharge/admit diagnosis, lab results, radiology results, the need for outpatient follow up, to return to the emergency department if symptoms worsen or persist or if there are any questions or concerns that arise at home. Special discussion: Based on the history and exam findings, there is no indication for further emergent testing or inpatient evaluation. I discussed with the patient/guardian the need to see the primary care provider for further evaluation of the symptoms. 02/01 13:30 Order name: Urine Microscopic Only; Complete Time: 14:29 snw 02/01 13:55 Order name: Urine Dipstick--Ancillary (enter results); Complete Time: 14:14 02/01 13:30 Order name: Lumbar Spine (3 Views) XRAY; Complete Time: 14:49 snw 02/01 13:55 Order name: Urine --Ancillary (enter results); Complete Time: 14:14 iw 02/01 13:30 Order name: Urine Test (obtain specimen); Complete Time: 13:54 snw 02/01 13:30 Order name: Urine Dipstick-Ancillary (obtain specimen); Complete Time: 13:54 snw Administered Medications: 14:56 Drug: TORadol 30 mg Route: IM; Site: right deltoid; iw 14:56 Drug: Flexeril 10 mg Route: PO; iw Disposition: 15:15 Co-signature as Attending Physician, Gely Padron MD. ma2 Disposition: 02/01/19 14:31 Discharged to Home. Impression: Fall (on) (from) other stairs and steps, Low back pain. - Condition is Stable. - Discharge Instructions: Back Pain, Adult, Fall Prevention in the Home, Musculoskeletal Pain, Cryotherapy, Rehydration, Adult, Heat Therapy. - Prescriptions for Mobic 7.5 mg Oral Tablet - take 1 tablet by ORAL route once daily take with food; 20 tablet. Cyclobenzaprine 10 mg Oral Tablet - take 1 tablet by ORAL route every 8 hours As needed; 15 tablet. - Work release form, Medication Reconciliation Form, Thank You Letter, Antibiotic Education, Prescription Opioid Use form. - Follow up: Private Physician; When: 1 week; Reason: Recheck today's complaints, Continuance of care, Re-evaluation by your physician. Follow up: Emergency Department; When: As needed; Reason: Worsening of condition. Signatures: Dispatcher [employer] EDMS Solange Murillo Shelly, BOBTAIL DRIVER-C BOBTAIL DRIVER-Csnw Britta Donahue RN RN iw Lori Reid RN RN aa5 Gely Padron MD MD ma2 Corrections: (The following items were deleted from the chart) 15:01 14:31 02/01/2019 14:31 Discharged to Home. Impression: Fall (on) (from) other stairs bd and steps; Low back pain. Condition is Stable. Forms are Medication Reconciliation Form, Thank You Letter, Antibiotic Education, Prescription Opioid Use. Follow up: Private Physician; When: 1 week; Reason: Recheck today's complaints, Continuance of care, Re-evaluation by your physician. Follow up: Emergency Department; When: As needed; Reason: Worsening of condition. snw
--- NOTE | 2019-02-01 14:31 | ER ---
Nurse's Notes [facility] Name: Denia Aviles Age: 23 yrs Sex: Female : 1995 Arrival Date: 02/01/2019 Time: 12:13 Bed 12 Private MD: None, None Diagnosis: Fall (on) (from) other stairs and steps;Low back pain Presentation: 02/01 12:20 Presenting complaint: Patient states: "I've broken my tail bone before and yesterday I aa5 fell and aggravated it". Pt c/o mid-low back pain. Transition of care: patient was not received from another setting of care. Onset of symptoms was January 31, 2019. Risk Assessment: Do you want to hurt yourself or someone else? Patient reports no desire to harm self or others. Initial Sepsis Screen: Does the patient meet any 2 criteria? No. Patient's initial sepsis screen is negative. Does the patient have a suspected source of infection? No. Patient's initial sepsis screen is negative. Care prior to arrival: None. 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 - Social history:: Smoking status: Patient uses tobacco products, smokes one-half pack cigarettes per day. - Ebola Screening: : No symptoms or risks identified at this time. Screenin:32 Abuse screen: Denies threats or abuse. Nutritional screening: No deficits noted. aa5 Tuberculosis screening: No symptoms or risk factors identified. Fall Risk None identified. Assessment: 12:25 General: Appears comfortable, Behavior is calm, cooperative. Pain: Complains of pain in aa5 lumbar area Pain does not radiate. Pain currently is 7 out of 10 on a pain scale. Quality of pain is described as sharp, Is continuous, Aggravated by increased activity. Neuro: Level of Consciousness is awake, alert, obeys commands, Oriented to person, place, time, situation. Cardiovascular: Heart tones S1 S2 present Rhythm is regular. Respiratory: Airway is patent Respiratory effort is even, unlabored, Respiratory pattern is regular, symmetrical. GI: No signs and/or symptoms were reported involving the gastrointestinal system. : No signs and/or symptoms were reported regarding the genitourinary system. EENT: No signs and/or symptoms were reported regarding the EENT system. Derm: Skin is pink, warm \\T\\ dry. Musculoskeletal: Range of motion: intact in all extremities. Vital Signs: 12:23 BP 124 / 81; Pulse 102; Resp 16 S; Temp 98.2(TE); Pulse Ox 99% on R/A; Weight 72.57 kg aa5 (R); Height 5 ft. 4 in. (162.56 cm) (R); Pain 7/10; 12:23 Body Mass Index 27.46 (72.57 kg, 162.56 cm) aa5 ED Course: 12:13 Patient arrived in ED. mr 12:13 None, None is Private Physician. mr 12:20 Arm band placed on. aa5 12:20 Patient has correct armband on for positive identification. aa5 12:22 Triage completed. aa5 12:22 Wendy Whelan FNP-C is PHCP. snw 12:22 Gely Padron MD is Attending Physician. snw 12:24 Lori Reid, ISMAEL is Primary Nurse. aa5 12:32 No provider procedures requiring assistance completed. aa5 13:32 Radiology exam delayed due to test not completed at this time. jb2 14:08 Patient moved to radiology via wheelchair. jb2 14:14 X-ray completed. Patient tolerated procedure well. Patient moved back from radiology. jb2 14:15 Lumbar Spine (3 Views) XRAY In Process Unspecified. EDMS 15:00 Patient did not have IV access during this emergency room visit. iw Administered Medications: 14:56 Drug: TORadol 30 mg Route: IM; Site: right deltoid; iw 14:56 Drug: Flexeril 10 mg Route: PO; iw Outcome: 14:31 Discharge ordered by . snw 15:00 Discharged to home ambulatory, with family. iw 15:00 Condition: good 15:00 Discharge instructions given to patient, family, Instructed on discharge instructions, follow up and referral plans. Demonstrated understanding of instructions, follow-up care, medications, Prescriptions given X 2. 15:01 Patient left the ED. bd Signatures: Dispatcher [employer] EDMS Solange Murillo, Wendy, INDUSTRIAL PRODUCTION MANAGER-C INDUSTRIAL PRODUCTION MANAGER-Csnw Nubia Chamorro Jesse jb2 Williams, Irene, RN RN iw Lori Reid RN RN aa5
--- NOTE | 2019-02-01 14:48 | RAD REPORT ---
EXAM DESCRIPTION: RAD - Lumbar Spine 3 Views - 02/01/2019 2:20 pm CLINICAL HISTORY: Fall, back pain COMPARISON: December 06, 2018 lumbar spine FINDINGS: A three-view lumbar spine examination was performed. Lumbar bodies are normal in height and alignment. No fracture or acute bony process seen. L5-S1 disc spaces relatively narrowed compared to the remaining lumbar spine disc levels. This is similar to guillermina or imaging. This can be a normal variant. No measurable facet degenerative change or facet abnormalit y. No pars defects identified. IMPRESSION: Negative lumbar spine examination for acute finding. No identifiable change from December 2018.
[2019-02-01] MEDS ORDERED: KETOROLAC 30 MG/ML INJ ONE (15:01)
[2019-02-01] MEDS ORDERED: CYCLOBENZAPRINE 10 MG TAB ONE (15:01)
[2019-02-01 15:06] VITALS: BP 124/81; TEMP 98.2; O2SAT 99
== END 2019-02-01 15:01 | disposition home or self-care (01) ==
LOC: ER 12:11
DX: M54.5 Low back pain (principal); W10.9XXA Fall (on) (from) unspecified stairs and steps, initial encounter; Y93.9 Activity, unspecified; Y92.9 Unspecified place or not applicable; F17.210 Nicotine dependence, cigarettes, uncomplicated
CPT/HCPCS: 72100; 81003; 81015; 81025; 96372; 99283

== ENCOUNTER 2019-07-31 16:02 | Emergency (ER) | payer SELFPAY ==
--- NOTE | 2019-07-31 16:41 | EDPHYS ---
Physician Documentation [facility] Name: Denia Aviles Age: 24 yrs Sex: Female : 1995 Arrival Date: 07/31/2019 Time: 16:04 Bed 8 Private MD: ED Physician Morgan Christensen HPI: 07/31 16:31 This 24 yrs old Female presents to ER via Ambulatory with complaints of Jaw rn Pain. 16:31 The patient presents with pain. Onset: The symptoms/episode began/occurred 1 year(s) rn ago. Duration: The symptoms are continuous. Modifying factors: The symptoms are alleviated by nothing, the symptoms are aggravated by chewing, cold fluids, food. Severity of symptoms: At their worst the symptoms were moderate, in the emergency department the symptoms are unchanged. The patient has experienced similar episodes in the past. The patient has not recently seen a physician. Reports dental pain, for more than a year, reports no insurance and is trying to get a payment plan with dentist. Denies focal swelling or drainage, no fever, no new trauma. Reports pain originates in teeth, no focal area, and shoots up to head. No head injury/focal neurological problem. . 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 - Social history:: Smoking status: . - Ebola Screening: : Patient denies travel to an Ebola-affected area in the 21 days before illness onset. - Family history:: not pertinent. - Hospitalizations: : No recent hospitalization is reported. ROS: 16:31 Constitutional: Negative for fever, chills, and weight loss, Eyes: Negative for injury, rn pain, redness, and discharge, ENT: + dental and jaw pain Neck: Negative for injury, pain, and swelling, Cardiovascular: Negative for chest pain, palpitations, and edema, Respiratory: Negative for shortness of breath, cough, wheezing, and pleuritic chest pain, Abdomen/GI: Negative for abdominal pain, nausea, vomiting, diarrhea, and constipation, MS/Extremity: Negative for injury and deformity, Skin: Negative for injury, rash, and discoloration, Neuro: Negative for weakness, numbness, tingling, and seizure. Exam: 16:31 Constitutional: This is a well developed, well nourished patient who is awake, alert, rn and in no acute distress. Ambulatory to room without difficulty or assistance. Head/Face: Normocephalic, atraumatic. Eyes: Pupils equal round and reactive to light, extra-ocular motions intact. Lids and lashes normal. Conjunctiva and sclera are non-icteric and not injected. Cornea within normal limits. Periorbital areas with no swelling, redness, or edema. ENT: Poor dentition without focal abscess/swelling, soft floor of mouth, no fluctuance or induration of buccal spaces. Neck: Trachea midline, no thyromegaly or masses palpated, and no cervical lymphadenopathy. Supple, full range of motion without nuchal rigidity, or vertebral point tenderness. No Meningismus. Neuro: Awake and alert, GCS 15, oriented to person, place, time, and situation. Cranial nerves II-XII grossly intact. Motor strength 5/5 in all extremities. Sensory grossly intact. Cerebellar exam normal. Normal gait. Vital Signs: 16:06 BP 136 / 92; Pulse 87; Resp 18; Temp 97.7(TE); Pulse Ox 100% on R/A; Weight 62.6 kg tw2 (R); Height 5 ft. 4 in. (162.56 cm); Pain 10/10; 16:06 Body Mass Index 23.69 (62.60 kg, 162.56 cm) tw2 MDM: 16:08 Patient medically screened. rn 16:31 Differential diagnosis: dental caries, gingivitis. Data reviewed: vital signs, nurses rn notes, and as a result, I will discharge patient. Counseling: I had a detailed discussion with the patient and/or guardian regarding: the historical points, exam findings, and any diagnostic results supporting the discharge/admit diagnosis, the need for outpatient follow up, to return to the emergency department if symptoms worsen or persist or if there are any questions or concerns that arise at home. Response to treatment: There is no appreciated change of the patient's symptoms at this time, and as a result, I will discharge patient. Special discussion: I discussed with the patient/guardian in detail that at this point there is no indication for admission to the hospital. It is understood, however, that if the symptoms persist or worsen the patient needs to return immediately for re-evaluation. Based on the history and exam findings, there is no indication for further emergent testing or inpatient evaluation. I discussed with the patient/guardian the need to see a dentist for further evaluation of the symptoms. Administered Medications: No medications were administered Disposition: 07/31/19 16:40 Discharged to Home. Impression: Dental caries. - Condition is Stable. - Discharge Instructions: Dental Pain. - Prescriptions for Clindamycin HCl 300 mg Oral Capsule - take 1 capsule by ORAL route every 6 hours for 10 days; 40 capsule. Ultram 50 mg Oral Tablet - take 1 tablet by ORAL route every 8 hours As needed; 15 tablet. Ibuprofen 800 mg Oral Tablet - take 1 tablet by ORAL route every 12 hours As needed take with food; 20 tablet. - Medication Reconciliation Form, Thank You Letter, Antibiotic Education, Prescription Opioid Use form. - Work release form (07/31/19 17:06). ss - Follow up: Private Physician; When: As needed; Reason: Recheck today's complaints, Re-evaluation by your physician. - Problem is chronic. - Symptoms are unchanged. Signatures: Morgan Christensen MD MD rn Smirch, Shelby, RN RN ss Wise, Tara, RN RN tw2 Corrections: (The following items were deleted from the chart) 16:47 16:40 07/31/2019 16:40 Discharged to Home. Impression: Dental caries. Condition is ss Stable. Forms are Medication Reconciliation Form, Thank You Letter, Antibiotic Education, Prescription Opioid Use. Follow up: Private Physician; When: As needed; Reason: Recheck today's complaints, Re-evaluation by your physician. Problem is chronic. Symptoms are unchanged. rn
--- NOTE | 2019-07-31 16:41 | ER ---
Nurse's Notes [facility] Name: Denia Aviles Age: 24 yrs Sex: Female : 1995 Arrival Date: 07/31/2019 Time: 16:04 Bed 8 Private MD: Diagnosis: Dental caries Presentation: 07/31 16:05 Presenting complaint: Patient states: i have been having a lot of teeth pain, i dont tw2 have insurance, and i have pressure migraines, i probably need some teeth pulled and i havent been to a dentist. Transition of care: patient was not received from another setting of care. Onset of symptoms was July 31, 2019. Risk Assessment: Do you want to hurt yourself or someone else? Patient reports no desire to harm self or others. Initial Sepsis Screen: Does the patient meet any 2 criteria? No. Patient's initial sepsis screen is negative. Does the patient have a suspected source of infection? No. Patient's initial sepsis screen is negative. Care prior to arrival: None. 16:05 Method Of Arrival: Ambulatory tw2 16:05 Acuity: FRED 3 tw2 Triage Assessment: 16:06 General: Appears in no apparent distress. Behavior is calm, cooperative, appropriate tw2 for age. Pain: Complains of pain in mouth. Neuro: Reports headache. 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 - Social history:: Smoking status: . - Ebola Screening: : Patient denies travel to an Ebola-affected area in the 21 days before illness onset. - Family history:: not pertinent. - Hospitalizations: : No recent hospitalization is reported. Screenin:10 Abuse screen: Denies threats or abuse. Nutritional screening: No deficits noted. tw2 Tuberculosis screening: No symptoms or risk factors identified. Fall Risk None identified. Assessment: 16:44 General: Appears in no apparent distress. uncomfortable, Behavior is calm, cooperative, aj1 appropriate for age. Pain: Complains of pain in mouth. Neuro: Level of Consciousness is awake, alert, obeys commands, Oriented to person, place, time, situation. Cardiovascular: Patient's skin is warm and dry. Respiratory: Airway is patent Respiratory effort is even, unlabored, Respiratory pattern is regular, symmetrical. GI: No signs and/or symptoms were reported involving the gastrointestinal system. : No signs and/or symptoms were reported regarding the genitourinary system. EENT: Reports tooth pain. Derm: No signs and/or symptoms reported regarding the dermatologic system. Skin is pink, warm \T\ dry. normal. Musculoskeletal: No signs and/or symptoms reported regarding the musculoskeletal system. Circulation, motion, and sensation intact. Vital Signs: 16:06 BP 136 / 92; Pulse 87; Resp 18; Temp 97.7(TE); Pulse Ox 100% on R/A; Weight 62.6 kg tw2 (R); Height 5 ft. 4 in. (162.56 cm); Pain 10/10; 16:06 Body Mass Index 23.69 (62.60 kg, 162.56 cm) tw2 ED Course: 16:04 Patient arrived in ED. mr 16:06 Triage completed. tw2 16:06 Arm band placed on. tw2 16:08 Morgan Christensen MD is Attending Physician. rn 16:10 Bed in low position. Call light in reach. tw2 16:11 Cha Fowler RN is Primary Nurse. aj1 16:44 No provider procedures requiring assistance completed. Patient did not have IV access aj1 during this emergency room visit. Administered Medications: No medications were administered Outcome: 16:40 Discharge ordered by . rn 16:46 Discharged to home ambulatory. ss 16:46 Condition: good 16:46 Discharge instructions given to patient, Instructed on discharge instructions, follow up and referral plans. medication usage, Demonstrated understanding of instructions, follow-up care, medications, Prescriptions given X 3. 16:47 Patient left the ED. ss Signatures: Cha Fowler, RN RN fay ChamorroNubia mr Morgan Christensen MD MD rn Smirch, Shelby, RN RN ss Wise, Tara, RN RN tw2
[2019-07-31 17:45] VITALS: BP 136/92; TEMP 97.7; O2SAT 100
== END 2019-07-31 16:47 | disposition home or self-care (01) ==
LOC: ER 16:02
DX: K02.9 Dental caries, unspecified (principal)
CPT/HCPCS: 99282

== ENCOUNTER 2021-08-08 22:24 | Emergency (ER) | payer SELFPAY ==
[2021-08-08] MEDS ORDERED: ONDANSETRON 4 MG/2 ML VIAL ONE (22:29)
[2021-08-08] MEDS ORDERED: NA CHLORIDE 0.9% 1,000 ML ONE (22:29)
[2021-08-08] MEDS ORDERED: FAMOTIDINE 20 MG/2 ML VIAL IV ONE (22:29)
[2021-08-08 22:53] LABS: Urine Blood Negative (Negative); Urine Glucose 2+ (Negative); Urine Protein 2+ (Negative); Urine Specific Gravity >=1.030 (1.005-1.030); Urine pH 6.5 (5.0-7.0)
[2021-08-08 22:56] LABS: Absolute Lymphocytes (CBC) 2.4 K/uL (0.7-4.9); Basophils % 0.6 % (0-1.3); Hematocrit 35.7 % (36.0-45.0); Lymphocytes % 42.8 % (15.3-44.8); MPV 7.7 fL (7.6-11.3); RBC Red Blood Cell Count 3.71 M/uL (3.86-4.86)
[2021-08-08 22:58] LABS: Urine Specific Gravity/Preg >1.030 (1.005-1.030)
[2021-08-08 23:00] LABS: Protime INR 1.02
[2021-08-08 23:14] LABS: ALT/SGPT 25 U/L (12-78); AST/SGOT 21 U/L (15-37); Albumin 3.2 g/dL (3.4-5.0); Alkaline Phosphatase 50 U/L (45-117); BUN Blood Urea Nitrogen 10 mg/dL (7-18); Bicarbonate 26 mmol/L (21-32); Bilirubin Direct < 0.1 mg/dL (0-0.2); Bilirubin Total 0.2 mg/dL (0.2-1.0); Glucose Level 216 mg/dL (74-106); Potassium 4.8 mmol/L (3.5-5.1); Protein, Total 6.4 g/dL (6.4-8.2); Sodium Level 144 mmol/L (136-145)
[2021-08-08 23:18] LABS: Barbiturates NEGATIVE (NEGATIVE); Benzodiazepines POSITIVE (NEGATIVE); Cocaine NEGATIVE (NEGATIVE); METHAMPHETAM POSITIVE (NEGATIVE); Methadone NEGATIVE (NEGATIVE); Opiates NEGATIVE (NEGATIVE); Phencyclidine NEGATIVE (NEGATIVE); THC Cannibis NEGATIVE (NEGATIVE)
[2021-08-09] MEDS ORDERED: NA CHLORIDE 0.9% 1,000 ML ONE (02:30)
--- NOTE | 2021-08-09 04:39 | ER ---
Nurse's Notes [facility] Name: Denia Self Age: 26 yrs Sex: Female : 1995 Arrival Date: 08/08/2021 Time: 22:24 Bed 3 Private MD: Diagnosis: Drug abuse counseling and surveillance of drug abuser;Poisoning by unspecified antiepileptic and sedative-hypnotic drugs, accidental (unintentional), initial encounter;Dehydration Presentation: 08/08 22:25 Chief complaint: EMS states: " She was at home, when the family stated that she went to [facility] the bathroom and was found face down in the bathroom." They stated they gave her a couple doses of Narcan to get her breathing again. Coronavirus screen: Vaccine status: Patient reports being unvaccinated. 22:25 Method Of Arrival: EMS: [facility] tw5 23:00 Ebola Screen: Patient denies travel to an Ebola-affected area in the 21 days before tw5 illness onset. Initial Sepsis Screen: Does the patient meet any 2 criteria? No. Patient's initial sepsis screen is negative. Does the patient have a suspected source of infection? No. Patient's initial sepsis screen is negative. Risk Assessment: Do you want to hurt yourself or someone else? Unable to obtain. Onset of symptoms is unknown. 23:00 Acuity: FRED 2 tw5 08/09 01:43 Note Pt oral temp now 97.5. Sarah hugger turned to low setting. Pt resting with eyes df1 closed, snoring. Arousable to touch and voice. Triage Assessment: 08/08 22:59 General: Appears unkempt, Behavior is listless. tw5 MEDICAL COLLECTIONS: 22:59 unable to obtain at this time due to paients LOC tw5 Historical: - Allergies: 22:52 No Known Allergies; tw - Home Meds: 22:52 cyclobenzaprine 10 mg Oral tab 1 tab 3 times per day [Active]; tw - PMHx: 22:53 Chronic back pain; - PSHx: 22:53 None; tw - Immunization history:: Client reports having NOT received the Covid vaccine. - Social history:: Smoking status: Patient reports the use of cigarette tobacco products, smokes one-half pack cigarettes per day, Patient uses street drugs. Screenin:50 Abuse screen: Denies injuries from another. was the one that gave her the " tw5 small pill" patient denies knowing the medication. Nutritional screening: No deficits noted. Tuberculosis screening: Risk factors: None. Fall Risk Mental Status- Overestimates/Forgets Limitations (15 pts.). Assessment: 22:37 Neuro: Level of Consciousness is confused, stuporous, Oriented to person, place, " I tw5 dont know what I took, my gave me something but he wouldn't tell me what it was". 22:50 General: Zulay Moreno applied to patient. tw5 22:54 Pain: Noted to be moaning. Cardiovascular:. Respiratory: Airway is patent Trachea tw5 midline Respiratory effort is shallow, Respiratory pattern is regular. Respiratory: Reports shortness of breath at rest. 22:54 General: Reports " I dont know what happened". tw5 08/09 02:57 Reassessment: Patient appears in no apparent distress at this time. Patient sleeping. tw5 04:28 General: Reports "I thought it was meth." Patient continuous to say that she got home tw5 around 830 and took a little hit of something, " I thought I felt a little off.". 05:15 General: Attempting to call the [facility] at [phone]. tw5 05:26 General: 2nd attempt to call [facility]. . tw5 Overdose: 08/08 23:01 [place] Suicide Severity Screening: "In the past month, have you wished you were tw5 or wished you could go to sleep and not wake up?" Patient responds "no." "In the past month, have you actually had any thoughts of killing yourself?" Patient responds "no." "In your lifetime, have you ever done anything, started to do anything, or prepared to do anything to end your life?" Patient responds "no.". [place] Suicide Severity Screening:. Patient took Unknown. Patient states " it was one little pill". Vital Signs: 22:50 BP 143 / 95; Pulse 8; Resp 14; Temp 92.9(R); Pulse Ox 100% on 2 lpm NC; Weight 58.97 tw5 kg; Height 5 ft. 4 in. (162.56 cm); 23:27 BP 129 / 89; Pulse 87; Resp 10; Pulse Ox 100% on 2 lpm NC; tw5 08/09 00:15 BP 114 / 86; Pulse 76; Resp 12; Pulse Ox 99% on R/A; tw5 01:40 BP 126 / 87; Pulse 102; Resp 18; Pulse Ox 96% on R/A; Pain 0/10; tw5 01:43 Temp 97.5(O); df1 02:57 BP 112 / 084; Pulse 95; Resp 12; Pulse Ox 99% on R/A; tw5 04:28 BP 117 / 70; Pulse 111; Resp 18; Pulse Ox 96% on 2 lpm NC; tw5 05:21 BP 122 / 82; Pulse 102; Resp 18; Pulse Ox 100% on R/A; tw5 08/08 22:50 Body Mass Index 22.31 (58.97 kg, 162.56 cm) tw5 ED Course: 08/08 22:24 Patient arrived in ED. tw5 22:25 Zenon Blake PA is PHCP. cp 22:25 Morgan Chrsitensen MD is Attending Physician. cp 22:27 Valentina Xiao is Primary Nurse. kc4 22:34 Inserted saline lock: 22 gauge in right antecubital area, using aseptic technique. tw5 22:34 Patient has correct armband on for positive identification. Placed in gown. Bed in low tw5 position. Call light in reach. Side rails up X 1. Side rails up X2. air sampling and monitoring on. Pulse ox on. NIBP on. Door closed. Noise minimized. Moved to private room. Repositioned patient. Bath given. Linen changed. 22:37 Oxygen administration via nasal cannula \\T\\ 2L/min. tw5 22:41 Arm band placed on right wrist. EKG completed in triage. Results shown to MD. tw5 22:43 Initial lab(s) drawn, by ED staff, sent to lab. Urine collected: straight cath tw5 specimen, clear, Amount Returned: 100mL EKG done, by ED staff, reviewed by Morgan Christensen MD. 22:50 X-ray(s) taken. tw5 22:54 Awaiting lab results. tw5 22:55 XRAY Chest (1 view) In Process Unspecified. EDNE 22:56 Urine --Ancillary Sent. kc 22:56 Urine --Ancillary (enter results) Sent. kc4 22:56 Acetaminophen Level Sent. kc4 22:57 Basic Metabolic Panel Sent. kc4 22:57 CBC with Diff Sent. kc4 22:57 Hepatic Function Sent. kc4 22:57 ETOH Level Sent. kc4 22:57 PT-INR Sent. kc4 22:57 Ptt, Activated Sent. kc4 22:57 Salicylate Sent. kc4 22:57 Urine Drug Screen Sent. kc4 23:01 Triage completed. tw5 23:[address] tw5 23:46 CT Head C Spine In Process Unspecified. EDNE 08/09 00:34 Acetaminophen Sent. tw5 02:57 Appears to be sleeping. tw5 02:57 Patient maintains SpO2 saturation greater than 95% on room air. tw5 04:28 Provider at the bedside speaking with patient. tw5 05:00 Awaiting transportation. tw5 05:20 Diet: Patient given snack. Patient given water. Assisted to bedside commode. tw5 Administered Medications: 08/08 22:57 Drug: Zofran (Ondansetron) 4 mg Route: IVP; Site: right antecubital; [facility] 08/09 02:38 Follow up: Response: Nausea is decreased df1 08/08 22:57 Drug: Pepcid (famotidine) 20 mg Route: IVP; Site: right antecubital; [facility] 08/09 02:37 Follow up: Response: No adverse reaction df1 08/08 22:58 Drug: NS 0.9% 1000 ml Route: IV; Rate: 1 bolus; Site: right antecubital; kc4 23:44 Drug: NS 0.9% 1000 ml Route: IV; Rate: 1 bolus; Site: right antecubital; tw5 08/09 02:34 Follow up: IV Status: Completed infusion kc4 02:34 Follow up: Response: No adverse reaction kc4 02:34 Drug: NS 0.9% 1000 ml Route: IV; Rate: 125 ml/hr; Site: right antecubital; 4 Outcome: 04:38 Discharge ordered by . stefanie 06:29 Patient left the ED. 4 Signatures: Dispatcher [employer] EDNE Morgan Christensen MD MD rn Page, Corey, PA PA cp Chuman, Kourtney kc4 Samina Carrington df1 Brenda Olivares tw5
--- NOTE | 2021-08-09 04:39 | EDPHYS ---
Physician Documentation [facility] Name: Denia Aviles Age: 26 yrs Sex: Female : 1995 Arrival Date: 08/08/2021 Time: 22:24 Bed 3 Private MD: ED Physician Morgan Christensen HPI: 08/08 22:25 This 26 yrs old Female presents to ER via Unassigned with complaints of Found cp Unresponsive. 22:25 The patient presents with decreased responsiveness. cp 22:25 Onset: The symptoms/episode began/occurred at an unknown time. Possible causes: drug cp use. Associated signs and symptoms: Pertinent positives: nausea, vomiting. Current symptoms: In the emergency department the patient's symptoms have improved, moderately, is more alert. EMS reports they were called to home of patient's family after family member found patient unresponsive in bathroom. Patient given 3 mg of Narcan IV en route and observed to become more alert. 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 - Social history:: Smoking status: Patient reports the use of cigarette tobacco products, smokes one-half pack cigarettes per day, Patient uses street drugs. ROS: 22:30 Constitutional: Negative for fever. cp 22:30 Eyes: Negative for injury, pain, redness, and discharge. cp 22:30 Cardiovascular: Negative for chest pain. 22:30 Respiratory: Negative for wheezing. 22:30 Abdomen/GI: Positive for nausea and vomiting, Negative for diarrhea. 22:30 Neuro: Positive for loss of consciousness. 22:30 All other systems are negative. Exam: 22:40 Head/Face: Normocephalic, atraumatic. cp 22:40 Constitutional: The patient appears alert, awake, non-toxic, well developed, well nourished, in obvious distress, mildly distressed. 22:40 Eyes: Periorbital structures: appear normal, Pupils: equal, round, and reactive to light and accomodation, Conjunctiva: normal, no exudate, no injection, Sclera: no appreciated abnormality, Lids and lashes: appear normal, bilaterally. 22:40 ENT: External ear(s): are unremarkable, Ear canal(s): are normal, clear, TM's: dullness, bilaterally, Nose: is normal, Mouth: Lips: moist, Oral mucosa: moist, Posterior pharynx: Airway: no evidence of obstruction, patent. 22:40 Neck: C-spine: vertebral tenderness, is not appreciated, crepitus, is not appreciated. 22:40 Chest/axilla: Inspection: normal, Palpation: is normal, no crepitus, no tenderness. 22:40 Cardiovascular: Rate: normal, Rhythm: regular, Edema: is not appreciated, JVD: is not appreciated. 22:40 Respiratory: the patient does not display signs of respiratory distress, Respirations: normal, no use of accessory muscles, no retractions, labored breathing, is not present, Breath sounds: are clear throughout, no decreased breath sounds, no stridor, no wheezing. 22:40 Abdomen/GI: Inspection: abdomen appears normal, Bowel sounds: active, all quadrants, Palpation: soft, in all quadrants, moderate abdominal tenderness, in all quadrants. 22:40 Neuro: Orientation: to person, place \T\ time. Mentation: able to follow commands, Motor: moves all fours, strength is normal, Sensation: no obvious gross deficits. 22:47 ECG was reviewed by the Attending Physician. cp Vital Signs: 22:50 BP 143 / 95; Pulse 8; Resp 14; Temp 92.9(R); Pulse Ox 100% on 2 lpm NC; Weight 58.97 tw5 kg; Height 5 ft. 4 in. (162.56 cm); 23:27 BP 129 / 89; Pulse 87; Resp 10; Pulse Ox 100% on 2 lpm NC; tw5 11/06 00:15 BP 114 / 86; Pulse 76; Resp 12; Pulse Ox 99% on R/A; tw5 01:40 BP 126 / 87; Pulse 102; Resp 18; Pulse Ox 96% on R/A; Pain 0/10; tw5 01:43 Temp 97.5(O); df1 02:57 BP 112 / 084; Pulse 95; Resp 12; Pulse Ox 99% on R/A; tw5 04:28 BP 117 / 70; Pulse 111; Resp 18; Pulse Ox 96% on 2 lpm NC; tw5 05:21 BP 122 / 82; Pulse 102; Resp 18; Pulse Ox 100% on R/A; tw5 08/08 22:50 Body Mass Index 22.31 (58.97 kg, 162.56 cm) tw5 MDM: 08/08 22:28 Patient medically screened. cp 23:00 Differential Diagnosis: electrolyte abnormality, alcohol intoxication, intracranial cp bleed, meningitis, overdose, pneumonia, seizure, sepsis, volume depletion. 08/09 04:34 Differential diagnosis: Ingestion/exposure to Opiates, narcotics, benzos. Data rn reviewed: vital signs, nurses notes, lab test result(s), EKG, radiologic studies, and as a result, I will discharge patient. Counseling: I had a detailed discussion with the patient and/or guardian regarding: the historical points, exam findings, and any diagnostic results supporting the discharge/admit diagnosis, lab results, radiology results, the need for outpatient follow up, to return to the emergency department if symptoms worsen or persist or if there are any questions or concerns that arise at home. Response to treatment: the patient's symptoms have markedly improved after treatment, and as a result, I will discharge patient. Special discussion: I discussed with the patient/guardian in detail that at this point there is no indication for admission to the hospital. It is understood, however, that if the symptoms persist or worsen the patient needs to return immediately for re-evaluation. Based on the history and exam findings, there is no indication for further emergent testing or inpatient evaluation. I discussed with the patient/guardian the need to see the primary care provider for further evaluation of the symptoms. ED course: Patient much more alert now. Awakens easily and holds conversation. has a little bit more memory of what happened. got home at about 830 or 840 and took a hit or snorted a line of something that she thought was meth and obviously was not. States her took the same drug about 30 minutes prior to her, she states she saw him and he seemed intoxicated and diaphoretic but did not pass out. Patient also states recently took a benzo as well.. ED course: Will cover with antibiotics given accidental recreational overdose and x-ray findings of right upper opacity could indicate aspiration. Counseled to stop using drugs. 08/08 22:26 Order name: Acetaminophen cp 08/08 22:26 Order name: Basic Metabolic Panel; Complete Time: 23:23 cp 08/08 23:23 Interpretation: Normal except: CL 111; GLUC 216; CA 8.4. cp 08/08 22:26 Order name: CBC with Diff; Complete Time: 23:09 08/08 23:24 Interpretation: Normal except: RBC 3.71; HCT 35.7; EOSINOPHIL % 5.3. cp 08/08 22:26 Order name: ETOH Level; Complete Time: 23:09 cp 08/08 22:26 Order name: Hepatic Function; Complete Time: 23:23 cp 08/09 00:27 Interpretation: Normal except: ALB 3.2; A/G 1.0. 08/08 22:26 Order name: PT-INR; Complete Time: 23:09 08/08 22:26 Order name: Ptt, Activated; Complete Time: 23:09 08/08 22:26 Order name: Salicylate; Complete Time: 23:23 08/08 22:26 Order name: Urine Drug Screen; Complete Time: 23:23 08/08 23:24 Interpretation: Normal except: BZO POSITIVE; METHAMPHETAMINE POSITIVE. 08/08 22:26 Order name: Acetaminophen Level; Complete Time: 23:23 EDMS 08/08 22:30 Order name: CT Head C Spine cp 08/08 22:53 Order name: Urine Dipstick-Ancillary; Complete Time: 23:09 EDMS 08/09 00:28 Interpretation: Normal except: UGLUC 2+; UPROT 2+. 08/08 22:55 Order name: Urine --Ancillary (enter results) tt3 08/08 22:55 Order name: Urine --Ancillary; Complete Time: 23:09 EDMS 08/08 22:26 Order name: EKG; Complete Time: 22:27 08/08 22:26 Order name: EKG - Nurse/Tech; Complete Time: 22:58 cp 08/08 22:26 Order name: IV Saline Lock; Complete Time: 22:58 08/08 22:26 Order name: Labs collected and sent; Complete Time: 22:56 cp 08/08 22:26 Order name: Suicide Screening ([place]); Complete Time: 00:34 cp 08/08 22:26 Order name: Urine Dipstick-Ancillary (obtain specimen); Complete Time: 22:58 cp 08/08 22:26 Order name: Urine Test (obtain specimen); Complete Time: 22:58 cp 08/08 22:30 Order name: XRAY Chest (1 view) cp 08/08 22:37 Order name: Cath; Complete Time: 22:56 cp EC/05 22:47 Rate is 86 beats/min. Rhythm is regular. FL interval is normal. QRS interval is normal. cp QT interval is normal. T waves are Inverted in lead aVR. Interpreted by me. Reviewed by me. Administered Medications: 22:57 Drug: Zofran (Ondansetron) 4 mg Route: IVP; Site: right antecubital; 4 08/09 02:38 Follow up: Response: Nausea is decreased df1 08/08 22:57 Drug: Pepcid (famotidine) 20 mg Route: IVP; Site: right antecubital; kc4 08/09 02:37 Follow up: Response: No adverse reaction df1 08/08 22:58 Drug: NS 0.9% 1000 ml Route: IV; Rate: 1 bolus; Site: right antecubital; kc4 23:44 Drug: NS 0.9% 1000 ml Route: IV; Rate: 1 bolus; Site: right antecubital; tw5 08/09 02:34 Follow up: IV Status: Completed infusion kc4 02:34 Follow up: Response: No adverse reaction kc4 02:34 Drug: NS 0.9% 1000 ml Route: IV; Rate: 125 ml/hr; Site: right antecubital; kc4 Disposition: 06:12 Co-signature as Attending Physician, Morgan Christensen MD I agree with the assessment and rn plan of care. PA/TAG WRITER's history reviewed, patient interviewed, and examined. HPI: 26-year-old female status post accidental overdose. Was found with decreased responsiveness and home. Patient does not recall what happened initially but later admitted to possibly taking a benzodiazepine in addition to snorting an unknown powder that she thought was methamphetamine. Improved after 2 doses of Narcan by EMS. My personal exam of patient reveals: Patient sedated but arousable to voice and tactile stimuli. Tachycardic, regular. Dry mouth. No nystagmus. I agree with assessment and care plan and confirm the diagnosis (es) above. Disposition Summary: 08/09/21 04:38 Discharge Ordered Location: Home rn Problem: new rn Symptoms: have improved rn Condition: Stable rn Diagnosis - Drug abuse counseling and surveillance of drug abuser rn - Poisoning by unspecified antiepileptic and sedative-hypnotic drugs, accidental rn (unintentional), initial encounter - Dehydration rn Followup: rn - With: Private Physician - When: As needed - Reason: Recheck today's complaints, Re-evaluation by your physician Discharge Instructions: - Discharge Summary Sheet rn - Dehydration, Adult rn - Accidental Drug Poisoning, Adult rn - Aspiration Pneumonia, Adult rn Forms: - Medication Reconciliation Form rn - Thank You Letter rn - Antibiotic rn orthopedic - Prescription Opioid Use rn Prescriptions: - Augmentin 875-125 mg Oral Tablet - take 1 tablet by ORAL route every 12 hours for 10 days; 20 tablet; Refills: 0, rn Product Selection Permitted - Zithromax Z-Yoni 250 mg Oral Tablet - take 1 tablet by ORAL route as directed for 5 days Day 1 - take two (2) tablets rn one time. Day 2, 3, 4 , 5 take one (1) tablet once daily.; 6 tablet; Refills: 0, Product Selection Permitted Signatures: Dispatcher [employer] EDMS Morgan Christensen MD MD rn Page, Corey, PA PA cp Valentina Xiao kc4 Brenda Olivares tw5 Samina Carrington df1 Corrections: (The following items were deleted from the chart) 08/08 22:57 22:47 Constitutional: The patient appears alert, awake, non-toxic, well developed, well cp nourished, in obvious distress, mildly distressed, cp 22:57 22:47 Head/Face: Normocephalic, atraumatic. cp cp 22:57 22:47 Eyes: Periorbital structures: appear normal, Pupils: equal, round, and reactive cp to light and accomodation, Conjunctiva: normal, no exudate, no injection, Sclera: no appreciated abnormality, Lids and lashes: appear normal, bilaterally, cp 22:57 22:47 ENT: External ear(s): are unremarkable, Ear canal(s): are normal, clear, TM's: cp dullness, bilaterally, Nose: is normal, Mouth: Lips: moist, Oral mucosa: moist, Posterior pharynx: Airway: no evidence of obstruction, patent, cp 22:57 22:47 Neck: C-spine: vertebral tenderness, is not appreciated, crepitus, is not cp appreciated, cp 22:57 22:47 Chest/axilla: Inspection: normal, Palpation: is normal, no crepitus, no cp tenderness, cp 22:57 22:47 Cardiovascular: Rate: normal, Rhythm: regular, Edema: is not appreciated, JVD: is cp not appreciated, cp 22:57 22:47 Respiratory: the patient does not display signs of respiratory distress, cp Respirations: normal, no use of accessory muscles, no retractions, labored breathing, is not present, Breath sounds: are clear throughout, no decreased breath sounds, no stridor, no wheezing, cp 22:57 22:47 Abdomen/GI: Inspection: abdomen appears normal, Bowel sounds: active, all cp quadrants, Palpation: soft, in all quadrants, moderate abdominal tenderness, in all quadrants, cp 22:57 22:47 Neuro: Orientation: to person, place \T\ time. Mentation: able to follow commands, cp Motor: moves all fours, strength is normal, Sensation: no obvious gross deficits, cp 23:23 23:23 Normal except: CL 111; GLUC 216. cp cp 23:24 23:24 Normal except: RBC 3.71; HCT 35.7. cp cp
[2021-08-09 06:44] VITALS: TEMP 97.5
[2021-08-09 06:48] VITALS: BP 122/82; O2SAT 100
--- NOTE | 2021-08-09 08:38 | RAD REPORT ---
EXAM DESCRIPTION: RAD - Chest Single View - 08/08/2021 10:54 pm CLINICAL HISTORY: unresponsive COMPARISON: No comparisons FINDINGS: Lines: None. Lungs: No evidence of edema or pneumonia. Pleural: No significant pleural effusions or pneumothorax. Cardiac: The heart size is within normal limits. Bones: No acute fractures. Other: IMPRESSION: No acute cardiopulmonary disease.
--- NOTE | 2021-08-09 20:30 | RAD REPORT ---
EXAM DESCRIPTION: CT - Head C Spine Mpr Wo Con - 08/09/2021 6:28 am CLINICAL HISTORY: The patient is 26 years old and is Female; Unresponsive TECHNIQUE: Axial computed tomography images of the head/brain and cervical spine without intravenous contrast. Sagittal and coronal reformatted images were created and reviewed. This CT exam was pe rformed using one or more of the following dose reduction techniques: automated exposure control, a djustment of the mA and/or kV according to patient size, and/or use of iterative reconstruction techn ique. COMPARISON: No relevant prior studies available. FINDINGS: Brain: Arachnoid cyst in the posterior fossa. No hemorrhage. No significant white matter disease. Ventricles: Unremarkable. No ventriculomegaly. Skull: No acute fracture. Sinuses: Maxillary, ethmoid, and sphenoid sinus fluid and mucosal thickening. Mastoid air cells: Unremarkable as visualized. No mastoid effusion. Vertebrae: No acute cervical spine fracture or subluxation. Reversal of normal cervical lordosis. Discs/spinal canal/neural foramina: No acute findings. No spinal canal stenosis. Soft tissues: Unremarkable. Lung apices: Scattered groundglass opacities in the right lung apex. IMPRESSION: 1. No acute intracranial abnormality. 2. No acute cervical spine fracture or subluxation. 3. Scattered groundglass opacities in the right lung apex. Electronically signed by: Cliff Smith MD 08/09/2021 12:10 AM CDT Due to temporary technical issues with the PACS/Fluency reporting system, reports are being signed by the in house radiologists without review as a courtesy to insure prompt reporting. The interpreting radiologist is fully responsible for the content of the report.
--- NOTE | 2021-08-11 18:31 | EKG ---
Test Date: 2021-08-08 Test Time: 22:41:44 County Tax Assessor: JESUS MEASUREMENT RESULTS: Intervals: Rate: 86 AR: 162 QRSD: 84 QT: 408 QTc: 488 [place]: P: 40 AR: 162 QRS: 77 T: 59 INTERPRETIVE STATEMENTS: Normal sinus rhythm Prolonged QT Abnormal ECG Compared to ECG 05/05/2008 08:41:10 Prolonged QT interval now present Electronically Signed On 08-11-21 18:24:20 REPAIRER ART OBJECTS by Chino Coates
--- OUTSIDE RECORDS SUMMARY | 2021-08-16 13:57 | XMS REPORT | Continuity of Care Document ---
:1995 Author Organization [facility] t Address [address] [place] [address] Care Team Providers Name Role Phone LORENZO SCHREIBER Primary Care Physician Unavailable Ellen PATEL Attending Clinician Unavailable Thelma RETAIL SALESMANAnurag Lanier Attending Clinician Anurag SCHREIBER Attending Clinician Unavailable Doctor Unassigned, Name Attending Clinician Unavailable Irving HERNADEZ Attending Clinician Unavailable ANENE Attending Clinician Unavailable Payers Payer Name Policy Type Policy Number Effective Date Expiration Date Lionel cevallos [id number] 2020 00:00:00 Advance Directives Directive Decision Effective Termination Comments Source Date Date Healthcare Agents on N/A Univ ersity FileNameRelationshipHealthcare of [place] Agent Medical RelationshipCommunicationParkwood [facility]al [facility] Care [phone] (Home) Problems Condition Condition Condition Status Onset Resolution Last Treating Co mments Source Name Details Category Date Date Treatment Clinician Date Need for Need for Disease Active Unive rs HPV HPV 8-10 ity [place] Elevated Elevated Disease Active Unive rs blood blood 8-10 ity of pressure pressure 00:00: [place] reading reading 00 Medical without without Branch diagnosis diagnosis of of hypertensi hypertensi on on Tooth Tooth Disease Active Univers abscess abscess 8-10 ity of 00:00: [place] 00 Medical Branch Encounter Encounter Disease Active 2016-10 Uni vers for for 2-15 [place]y of surve[place]an [place] of 00 Medical implantabl implantabl Br anch e e subdermal subdermal contracept contracept ruth ruth Nexplanon Nexplanon Disease Active 2016-[address] in place 2-15 ity of 00:00: [place] 00 [facility] Branch Tobacco Tobacco Disease Active Overview: Univ ers use use -28 Formattin ity of disorder disorder 00:00: g of this Randy as 00 note Medical might be Branch different from the original. Quit in May 2015 History of History of Disease Active Overview : Univers depression depression 5-28 Formattin ity of 00:00: g of this [place] 00 note Medical might be Branch different from the original. Hx of depressio n. Denies PP. F/u 1 week PP to evaluate emotional status. Pt reports hx of depressio n. Denies sadness, depressio n, SI, and thoughts of hurting her children. She was given a Lexapro prescript ion from OB provider in and has not started taking the medicatio n. She is worried about how she will feel until the medicatio n becomes therapeut ic. She reports feeling anxious about her ability to multi task with a 2 year old and a . She has plans to stay with grandmoth er PP to have help taking care of 2 year old. She resides with FO and his parents. PP discharge plan f/u in 1 week to evaluate emotional status. Psych referral placed to have her f/u within 2 weeks. utility service worker, Sammi Chaves, is assisting pt with informati on and resources . Allergies, Adverse Reactions, Alerts Allergy Allergy Status Severity Reaction(s) Onset Inactive Treating Comm ents Source Name Type Date Date Clinician NO KNOWN Drug Active Univers ALLERGIE Class ity of S [facility] Social History Social Habit Start Date Stop Date Quantity Comments Source History of tobacco 2015-09-17 Cigarette Smoker University of use 00:00:00 [facility] History SDOH University o f Alcohol Std Drinks [facility] History [facility] University o f Alcohol Binge [facility] Exposure to Not sure [facility] SARS-CoV-2 (event) [facility] Tobacco use and 2021-05-13 2021-05-13 Never used Universit y of exposure 00:00:00 00:00:00 [facility] Cigarettes smoked 2021-05-13 2021-05-13 Univers ity of current (pack per 00:00:00 00:00:00 [place] ) - Reported Branch Cigarette 2021-05-13 2021-05-13 University of pack-years 00:00:00 00:00:00 [facility] Alcohol Comment 2021-05-13 2021-05-13 Socially Universit y of 00:00:00 00:00:00 [facility] Alcohol intake 2021-05-13 2021-05-13 Current drinker Unive rsity of 00:00:00 00:00:00 of alcohol [facility] (finding) Branch History SDOH 2020-03-26 2020-03-26 2 University o f Alcohol Frequency 00:00:00 00:00:00 [facility] edical Branch Tobacco Comment 2017-09-17 2017-09-17 pack/day Universit y of 00:00:00 00:00:00 [facility] Sex Assigned At [birth year] Universit y of 00:00:00 00:00:00 [facility] Smoking Status Start Date Stop Date Source Current every day smoker 2021-05-13 00:00:00 Uni versity of [facility] Medications Ordered Filled Start Stop Current Ordering Indication Dosage Frequency Signature Comments Components Source Medication Medication Date Date Medication? Clinician (SIG) Name Name etonogestre 2019- No [id number] 68mg Univers l 7-15 07-15 ity of (NEXPLANON) 15:45: 15:06 [place] implant 68 00 :00 Medical mg Branch etonogestre 2019- No [id number] 68mg 68 mg, Univers l 7-15 07-15 Subdermal, ity of (NEXPLANON) 15:45: 15:06 ONCE NOW, [place] implant 68 00 :00 1 dose, Medica l mg [facility] 04/17/20 at 1045, Routine
Use approved by: CAREER COORDINATOR etonogestre 2019- No [id number] 68mg Univers l 7-15 07-15 ity of (NEXPLANON) 15:45: 15:06 [place] implant 68 00 :00 Medical mg Branch etonogestre 2019- No [id number] 68mg 68 mg, Univers l 7-15 07-15 Subdermal, ity of (NEXPLANON) 15:45: 15:06 ONCE NOW, [place] implant 68 00 :00 1 dose, Medica l mg [facility] 04/17/20 at 1045, Routine
Use approved by: CAREER COORDINATOR No known No Univers medications ity [facility] No known No Univers medications ity of [facility] [place] [facility] No known No [facility] No known No [facility] No known No Univers [facility] No [facility] No Univers [facility] No [facility] No Univers medications [facility] No known No Univers [facility] No known No Univers medications [facility] No known No Univers [facility] Immunizations Ordered Filled Immunization Date Status Comments [facility] e Immunization Name Name HPV9 2021-05-13 Completed University of 00:00:00 [facility] HPV9 2021-05-13 Completed University of 00:00:00 [facility] Branch HPV9 2021-05-13 Completed University of 00:00:00 [facility] HPV9 2021-05-13 Completed University of 00:00:00 [facility] HPV9 2017-09-17 Completed University of 00:00:00 [facility] HPV9 2017-09-17 Completed University of 00:00:00 [facility] HPV9 2017-09-17 Completed University of 00:00:00 [facility] HPV9 2017-09-17 Completed University of 00:00:00 [facility] Branch HPV9 2017-09-17 Completed University of 00:00:00 [facility] HPV9 2017-09-17 Completed University of 00:00:00 [facility] HPV9 2017-09-17 Completed University of 00:00:00 [facility] HPV9 2017-09-17 Completed University of 00:00:00 [facility] HPV9 2017-09-17 Completed University of 00:00:00 [facility] HPV9 2017-09-17 Completed University of 00:00:00 [facility] HPV9 2017-09-17 Completed University of 00:00:00 [facility] HPV9 2017-09-17 Completed University of 00:00:00 [facility] Influenza Virus 2015-07-22 Completed Universit y of Vaccine Quad IM 3+ 00:00:00 [facility] Influenza Virus 2015-07-22 Completed Universit y of Vaccine Quad IM 3+ 00:00:00 [facility] Influenza Virus 2015-07-22 Completed Universit y of Vaccine Quad IM 3+ 00:00:00 [facility] Influenza Virus 2015-07-22 Completed Universit y of Vaccine Quad IM 3+ 00:00:00 [facility] Influenza Virus 2015-07-22 Completed Universit y of Vaccine Quad IM 3+ 00:00:00 [facility] Influenza Virus 2015-07-22 Completed Universit y of Vaccine Quad IM 3+ 00:00:00 [facility] Influenza Virus 2015-07-22 Completed Universit y of Vaccine Quad IM 3+ 00:00:00 [facility] Influenza Virus 2015-07-22 Completed Universit y of Vaccine Quad IM 3+ 00:00:00 [facility] Influenza Virus 2015-07-22 Completed Universit y of Vaccine Quad IM 3+ 00:00:00 [facility] Influenza Virus 2015-07-22 Completed Universit y of Vaccine Quad IM 3+ 00:00:00 [facility] Influenza Virus 2015-07-22 Completed Universit y of Vaccine Quad IM 3+ 00:00:00 [facility] Influenza Virus 2015-07-22 Completed Universit y of Vaccine Quad IM 3+ 00:00:00 [facility] TDAP 2015-07-08 Completed University of 00:00:00 [facility] TDAP 2015-07-08 Completed University of 00:00:00 [facility] TDAP 2015-07-08 Completed University of 00:00:00 [facility] TDAP 2015-07-08 Completed University of 00:00:00 [facility] TDAP 2015-07-08 Completed University of 00:00:00 [facility] TDAP 2015-07-08 Completed University of 00:00:00 [facility] TDAP 2015-07-08 Completed University of 00:00:00 [facility] TDAP 2015-07-08 Completed University of 00:00:00 [facility] TDAP 2015-07-08 Completed University of 00:00:00 [facility] TDAP 2015-07-08 Completed University of 00:00:00 [facility] TDAP 2015-07-08 Completed University of 00:00:00 [facility] TDAP 2015-07-08 Completed University of 00:00:00 [facility] Td 2010-05-30 Completed University of 00:00:00 [facility] Td 2010-05-30 Completed University of 00:00:00 [facility] Td 2010-05-30 Completed University of 00:00:00 [facility] Td 2010-05-30 Completed University of 00:00:00 [place] [facility] Td 2010-05-30 Completed University of 00:00:00 [place] [facility] Td 2010-05-30 Completed University of 00:00:00 [place] [facility] Td 2010-05-30 Completed University of 00:00:00 [place] [facility] Td 2010-05-30 Completed University of 00:00:00 [place] [facility] Td 2010-05-30 Completed University of 00:00:00 [place] [facility] Td 2010-05-30 Completed University of 00:00:00 [place] [facility] Td 2010-05-30 Completed University of 00:00:00 [place] [facility] Td 2010-05-30 Completed University of 00:00:00 [facility] Branch Vital Signs Vital Name Observation Time Observation Value Comments Source Systolic blood 2021-05-13 14:27:00 146 mm[Hg] Univer sity of pressure [facility] Diastolic blood 2021-05-13 14:27:00 92 mm[Hg] Unive rsity of pressure [facility] Heart rate 2021-05-13 14:26:00 82 /min Universi ty [facility] Body temperature 2021-05-13 14:26:00 [facility]06 [place] [facility] 2021-05-13 14:26:00 16 /min [facility] Body height 2021-05-13 14:26:00 162.6 cm Universi ty [facility] Body weight 2021-05-13 14:26:00 58.605 kg Universi ty [facility] BMI 2021-05-13 14:26:00 22.18 kg/m2 Universi ty [facility] Systolic blood 2020-04-17 14:20:00 133 mm[Hg] Univer sity of pressure [facility] Diastolic blood 2020-04-17 14:20:00 88 mm[Hg] Unive rsity of pressure [facility] Heart rate 2020-04-17 14:20:00 79 /min Universi ty [facility] Body temperature 2020-04-17 14:20:00 36.5 [place] Univ ersity [facility] Respiratory rate 2020-04-17 14:20:00 16 /min [facility] height 2020-04-17 14:20:00 162.6 cm Universi ty [facility] Body weight 2020-04-17 14:20:00 59.875 kg Universi ty [facility] BMI 2020-04-17 14:20:00 22.66 kg/m2 Universi ty [facility] Systolic blood 2020-03-26 20:26:00 136 mm[Hg] Univer sity of [facility] Diastolic blood 2020-03-26 20:26:00 89 mm[Hg] Unive rsity of pressure [facility] Heart rate 2020-03-26 20:26:00 98 /min Universi ty [facility] Body temperature 2020-03-26 20:26:00 36.61 [facility] Respiratory rate 2020-03-26 20:26:00 16 /min [facility] Body height 2020-03-26 20:26:00 162.6 cm Universi ty [facility] Body weight 2020-03-26 20:26:00 61.406 kg Universi ty [facility] BMI 2020-03-26 20:26:00 23.24 kg/m2 Universi ty [facility] Procedures Procedure Date / Time Performing Clinician Source Performed GARDASIL 9 (HPV 9V) 2021-05-13 14:35:34 Lorenzo Schreiber [facility] ASSIGNMENT OF BENEFITS 2021-05-13 14:04:28 Doctor Unassigned, No [facility] CONSENT FOR 2020-04-17 05:01:00 Doctor Unassigned, No [facility] CONTRACEPTION [facility] POCT TEST 2020-04-17 00:00:00 [facility]EF[facility] 2020-03-26 19:59:06 Doctor Unassigned, No [facility] Encounters Start End Encounter Admission Attending Care Care Encounter Source Date/Time Date/Time Type Type Clinicians Facility Department ID 2021-08-14 2021-08-14 Outpatient R [facility] [id number] Univers 10:30:00 10:30:00 [id number] [facility] 2021-08-14 2021-08-14 Outpatient R JORGE [facility] [id number] Univers 10:30:00 10:30:00 [facility] 2021-05-13 2021-05-13 [facility] [id number] Univers 09:09:27 10:34:06 Visit Lorenzo Osborn CAREER COORDINATOR [id number] ity [facility] [id number] Randy as MATERNAL [phone] [facility] & CHILD [address] [place] [address] 2021-05-13 2021-05-13 [facility] [id number] Univers 08:45:00 08:45:00 LORENZO [id number] raejake o [facility] 2021-05-13 2021-05-13 Outpatient Ellen SCHREIBER [facility] [id number] Univers 08:45:00 08:45:00 LORENZO heredia o [facility] 2021-05-13 2021-05-13 Orders Doctor TERRI [id number] Univers 00:00:00 00:00:00 Only Unassigned, TAMMY [id number] ity of [facility] [id number] Randy as [phone] [address] 2021-05-06 2021-05-06 Outpatient Anurag HERNADEZ [facility] [id number] Univers 09:45:00 09:45:00 TL [id number] giovanna o [facility] 2021-05-06 2021-05-06 Outpatient Anurag HERNADEZ [facility] [id number] Univers 09:45:00 09:45:00 TL heredia o [facility] 2021-04-17 2021-04-17 Outpatient Anurag SCHREIBER [facility] [id number] Univers 13:45:00 13:45:00 LORENZO [id number] giovanna o [facility] 2021-04-17 2021-04-17 Outpatient Anurag SCHREIBER [facility] [id number] Univers 13:45:00 13:45:00 LORENZO heredia o [facility] 2020-05-24 2020-05-24 Outpatient [facility] [id number] Univers 10:30:00 10:30:00 [id number] ity [facility] 2020-05-24 2020-05-24 Outpatient R [facility] [id number] Univers 10:30:00 10:30:00 ity of [facility] 2020-05-22 2020-05-22 Outpatient R [facility] [id number] Univers 13:00:00 13:00:00 [id number] ity of [facility] 2020-05-22 2020-05-22 [facility] [id number] Univers 13:00:00 13:00:00 [facility] o f [facility] 2020-04-17 2020-04-17 Office Thelma [facility] [id number] Univers 09:06:49 10:01:05 Visit Lorenzo Osborn CAREER COORDINATOR [id number] ity of [facility] [id number] Randy as MATERNAL [phone] Med ical & CHILD [address] [place] [address] 2020-04-17 2020-04-17 [facility] [id number] Univers 09:00:00 09:00:00 МАРИНАMICHELLESNEHAL [id number] ity o f [facility] 2020-04-17 2020-04-17 Outpatient R THELMA [facility] [id number] Univers 09:00:00 09:00:00 [place]Ang[place] ity o f [facility] 2020-04-17 2020-04-17 Orders Doctor TERRI [id number] Univers 00:00:00 00:00:00 Only Unassigned, TAMMY [id number] ity of [facility] [id number] Randy as [id number] [address] 2020-04-09 2020-04-09 Outpatient R [facility] [id number] Univers 11:40:00 11:40:00 ity of [facility] 2020-04-09 2020-04-09 Outpatient R [facility] [id number] Univers 11:40:00 11:40:00 ity of [facility] 2020-04-08 2020-04-08 Outpatient R [facility] [id number] Univers 10:20:00 10:20:00 [id number] ity of [facility] 2020-04-08 2020-04-08 Outpatient R DONELL [facility] [id number] Univers 10:20:00 10:20:00 ARIANNA ity of [facility] 2020-04-04 2020-04-04 Telephone [facility] [id number] Univers 00:00:00 00:00:00 Lorenzo Anurag CAREER COORDINATOR [id number] ity of [facility] [id number] Randy as MATERNAL [id number] Med ical & CHILD [address] [place] [address] 2020-03-26 2020-03-26 Office [facility] [id number] Univers 15:08:16 16:05:43 Visit Lorenzo Anurag CAREER COORDINATOR [id number] ity of [facility] [id number] Randy as MATERNAL [id number] [facility] & [address] 2020-03-26 2020-03-26 [facility] [id number] Univers 14:45:00 14:45:00 ROSDAINA [id number] ity o f [facility] 2020-03-26 2020-03-26 [facility] [id number] Univers 14:45:00 14:45:00 ROSHUNDA ity o f [facility] 2020-03-26 2020-03-26 Orders Doctor TERRI [id number] Univers 00:00:00 00:00:00 Only Unassigned, TAMMY [id number] ity of [place] [facility] [id number] Randy as [phone] [address] Results Test Description Test Time Test Comments Results Result Comments Source POCT TEST 2020-04-17 14:26:00 Test Item Value Reference Range Interpretation Comme nts POCT PREG (test code = 1605) Negative On board controls acceptable with C Line (test code = 3574) Yes POCT PREG LOT # (test code = 3575) POCT PREG TEST DATE (test code = 3576) [id number] 14:26:00 Test Item Value Reference Range Interpretation Comments POCT PREG (test code = 1605) Negative On board controls acceptable with C Yes Line (test code = 3574) POCT PREG LOT # (test code = 3575) POCT PREG TEST DATE (test code = 3576) [facility]
== END 2021-08-09 06:29 | disposition home or self-care (01) ==
LOC: ER 22:24
DX: T42.71XA Poisoning by unspecified antiepileptic and sedative-hypnotic drugs, accidental (unintentional), initial encounter (principal); E86.0 Dehydration; Z71.51 Drug abuse counseling and surveillance of drug abuser; F17.210 Nicotine dependence, cigarettes, uncomplicated
CPT/HCPCS: 36415; 70450; 71045; 72125; 80048; 80076; 80307; 80320; 80329; 81003; 81025; 85025; 85610; 85730; 93005; 96361; 96374; 96375; 99285; J2405; J7030